=== PATIENT | male | born 1945 ===

== ENCOUNTER 2017-04-06 09:08 | Emergency (ER) | payer OTHER ==
[~2017-04-06] VITALS: Ht 175.3 cm; Wt 90.7 kg
[~2017-04-06 09:08] MED LIST: FAMO20 PO; IBUPROFEN; LISINOPRIL PO; METH5 PO; VALIUM
[2017-04-06] MEDS ORDERED: IBUP800 PO (09:26)
[2017-04-06] MEDS ORDERED: TRIA50 (09:26)
[2017-04-06 09:49] LABS: BASOPHILS ABSOLUTE AUTO 0.04 K/mm3 (0.00-0.23); BASOPHILS PERCENT AUTO 1 % (0-2); EOSINOPHILS ABSOLUTE AUTO 0.06 K/mm3 (0.00-0.68); EOSINOPHILS PERCENT AUTO 1 % (0-6); Hematocrit 44.2 % (37.0-53.0); Hemoglobin 14.8 g/dL (13.5-17.5); IMMATURE GRAN ABSOLUTE AUTO 0.02 K/mm3 (0.00-0.10); IMMATURE GRAN PERCENT AUTO 0 % (0-1); LYMPHOCYTES ABSOLUTE AUTO 1.22 K/mm3 (0.84-5.20); LYMPHOCYTES PERCENT AUTO 18 % (21-46); MONOCYTES ABSOLUTE AUTO 0.79 K/mm3 (0.16-1.47); MONOCYTES PERCENT AUTO 12 % (4-13); Mean Corpuscular HGB Conc 33.5 g/dL (31.5-36.5); Mean Corpuscular Volume 90 fL (80-100); Mean Platelet Volume 9.6 fL (9.1-12.4); NEUTROPHILS PERCENT AUTO 69 % (41-73); Platelet Count 251 K/mm3 (150-400); RDW Coefficient Variation 12.1 % (11.7-14.2); RDW Standard Deviation 39.8 fL (35.1-46.3); Red Blood Cell Count 4.94 M/mm3 (4.30-5.90); White Blood Cell Count 6.83 K/mm3 (4.00-11.30)
[2017-04-06 10:13] LABS: Alanine Aminotransfer (ALT/SGP 41 U/L (12-78); Albumin, Blood 3.9 g/dL (3.4-5.0); Albumin/Globulin Ratio 0.9 (0.8-1.8); Alk Phos 77 U/L (50-136); Anion Gap 6 mmol/L (6-16); Aspartate Aminotrans (AST/SGOT 32 U/L (12-37); Bilirubin, Total 0.3 mg/dL (0.1-1.0); Blood Urea Nitrogen 19 mg/dL (8-24); Bun/Creatinine Ratio 21.1 (12.0-20.0); CO2, Blood 25 mmol/L (21-32); Calcium, Blood 8.4 mg/dL (8.5-10.1); Chloride, Blood 103 mmol/L (98-108); Globulin, Blood 4.4 g/dL (2.2-4.0); Glomerular Filtration Rate >60 (60-); Glucose, Blood 96 mg/dL (70-99); Potassium, Blood 4.2 mmol/L (3.5-5.5); Sodium, Blood 134 mmol/L (136-145); Total Protein, Blood 8.3 g/dL (6.4-8.2); Troponin I <0.015 ng/mL (0.000-0.040)
[2017-04-06] MEDS ORDERED: Zofran8 MG PO (11:12)
[2017-04-06] MEDS ORDERED: MECL12.5 PO (11:12)
[2017-04-06 11:17] LABS: Influenza A Negative (NEGATIVE); Influenza B Negative (NEGATIVE)
== END 2017-04-06 11:40 | disposition home or self-care (01) ==
LOC: ER 09:08
PROVIDERS: Emergency Medicine
DX: R42 Dizziness and giddiness (principal); Z79.899 Other long term (current) drug therapy; I10 Essential (primary) hypertension; K21.9 Gastro-esophageal reflux disease without esophagitis; Z87.891 Personal history of nicotine dependence
CPT/HCPCS: 36415; 71046; 80053; 84443; 84484; 85025; 87804; 93005; 93010; 93880; 96361; 96374; 96375; 99284; J2060; J2405; J7030

== ENCOUNTER → 2018-12-09 | Outpatient (CLI) | payer OTHER ==
[~2018-12-09] MED LIST changes: +IBUP800 PO; +MECL12.5 PO; +TRIA50; +Zofran8 MG PO
[2018-12-09 10:57] LABS: U Amphetamine Screen Not Detected; U Barbituate Screen Not Detected; U Benzodiazapine Screen Not Detected; U Buprenorphine Screen Not Detected; U Cannabinoids Screen Not Detected; U Cocaine Screen Not Detected; U Methadone Screen DETECTED; U Methamphetamine Screen Not Detected; U Opiates Screen Not Detected; U Oxycodone Screen Not Detected; U Phencyclidine Screen Not Detected; U Propoxyphene Screen Not Detected
== END | disposition home or self-care (01) ==
LOC: LAB SHORT 08:13 → OLS 08:13
PROVIDERS: Internal Medicine
DX: Z51.81 Encounter for therapeutic drug level monitoring (principal); Z79.891 Long term (current) use of opiate analgesic
CPT/HCPCS: G0480

== ENCOUNTER 2019-01-01 10:26 | Emergency (ER) | payer OTHER ==
[~2019-01-01] VITALS: Ht 175.3 cm; Wt 98.9 kg
[2019-01-01] MEDS ORDERED: Norco 5-325 Ta1 EACH PO (11:24)
[2019-01-01] MEDS ORDERED: METPRE4DP PO (11:24)
== END 2019-01-01 11:55 | disposition home or self-care (01) ==
LOC: ER 10:26
DX: M54.5 Low back pain (principal); I10 Essential (primary) hypertension; K21.9 Gastro-esophageal reflux disease without esophagitis; Z87.891 Personal history of nicotine dependence; Z79.899 Other long term (current) drug therapy
CPT/HCPCS: 72100; 99283-25; A9270-GY

== ENCOUNTER 2019-01-15 08:39 | Emergency (ER) | payer OTHER ==
[~2019-01-15] VITALS: Ht 175.3 cm; Wt 99.8 kg
[~2019-01-15 08:39] MED LIST changes: +METPRE4DP PO; +Norco 5-325 Ta1 EACH PO
[2019-01-15 09:24] LABS: BASOPHILS ABSOLUTE AUTO 0.06 K/mm3 (0.00-0.23); BASOPHILS PERCENT AUTO 1 % (0-2); EOSINOPHILS ABSOLUTE AUTO 0.15 K/mm3 (0.00-0.68); EOSINOPHILS PERCENT AUTO 2 % (0-6); Hematocrit 39.1 % (37.0-53.0); Hemoglobin 12.7 g/dL (13.5-17.5); IMMATURE GRAN ABSOLUTE AUTO 0.07 K/mm3 (0.00-0.10); IMMATURE GRAN PERCENT AUTO 1 % (0-1); LYMPHOCYTES ABSOLUTE AUTO 1.77 K/mm3 (0.84-5.20); LYMPHOCYTES PERCENT AUTO 19 % (21-46); MONOCYTES ABSOLUTE AUTO 0.97 K/mm3 (0.16-1.47); MONOCYTES PERCENT AUTO 11 % (4-13); Mean Corpuscular HGB 30.5 pg (26.0-34.0); Mean Corpuscular HGB Conc 32.5 g/dL (31.5-36.5); Mean Corpuscular Volume 94 fL (80-100); Mean Platelet Volume 9.5 fL (9.1-12.4); NEUTROPHILS ABSOLUTE AUTO 6.24 K/mm3 (1.96-9.15); NEUTROPHILS PERCENT AUTO 67 % (41-73); Platelet Count 245 K/mm3 (150-400); RDW Coefficient Variation 12.7 % (11.7-14.2); RDW Standard Deviation 43.8 fL (35.1-46.3); Red Blood Cell Count 4.16 M/mm3 (4.30-5.90); White Blood Cell Count 9.26 K/mm3 (4.00-11.30)
[2019-01-15 09:31] LABS: Influenza A Negative (NEGATIVE); Influenza B Negative (NEGATIVE)
[2019-01-15 09:47] LABS: Alanine Aminotransfer (ALT/SGP 45 U/L (12-78); Albumin, Blood 3.4 g/dL (3.4-5.0); Albumin/Globulin Ratio 0.8 (0.8-1.8); Alk Phos 77 U/L (50-136); Anion Gap 6 mmol/L (6-16); Aspartate Aminotrans (AST/SGOT 31 U/L (12-37); Bilirubin, Total 0.2 mg/dL (0.1-1.0); Blood Urea Nitrogen 17 mg/dL (8-24); Bun/Creatinine Ratio 17.7 (12.0-20.0); CO2, Blood 26 mmol/L (21-32); Calcium, Blood 8.7 mg/dL (8.5-10.1); Chloride, Blood 107 mmol/L (98-108); Creatinine, Blood 0.96 mg/dL (0.60-1.20); Globulin, Blood 4.1 g/dL (2.2-4.0); Glomerular Filtration Rate >60 (60-); Glucose, Blood 92 mg/dL (70-99); Potassium, Blood 4.1 mmol/L (3.5-5.5); Sodium, Blood 139 mmol/L (136-145); Total Protein, Blood 7.5 g/dL (6.4-8.2); Troponin I <0.015 ng/mL (0.000-0.040)
[2019-01-15] MEDS ORDERED: Zithromax250 MG PO (10:28)
[2019-01-15] MEDS ORDERED: IBUP600 PO (10:28)
[2019-01-15] MEDS ORDERED: DEXT30SU PO (10:28)
== END 2019-01-15 12:05 | disposition home or self-care (01) ==
LOC: ER 08:39
PROVIDERS: Emergency Medicine
DX: J40 Bronchitis, not specified as acute or chronic (principal); I10 Essential (primary) hypertension; K21.9 Gastro-esophageal reflux disease without esophagitis; Z87.891 Personal history of nicotine dependence; Z79.899 Other long term (current) drug therapy; Z79.52 Long term (current) use of systemic steroids
CPT/HCPCS: 36415; 71046; 80053; 84484; 85025; 87804; 93005; 93010; 96374; 99284-25; J1885

== ENCOUNTER 2020-11-28 08:16 | Day surgery (SDC) | payer OTHER ==
[~2020-11-28] VITALS: Ht 175.3 cm; Wt 100.0 kg
[~2020-11-28 08:16] MED LIST changes: +Aspir 8181 MG; +DEXT30SU PO; +DYAZIDE 37.5-21 EACH; +IBUP600 PO; +IBUP800; +MIRT30; +MONT10T; +OMEP20ER; +PROCARDIA XL90 MG; +Zithromax250 MG PO
== END 2020-11-28 10:12 | disposition home or self-care (01) ==
LOC: ORSCSDS 08:16
PROVIDERS: Internal Medicine Gastroenterology
PROC: 0DBH8ZX Excision of Cecum, Via Natural or Artificial Opening Endoscopic, Diagnostic (ICD-10-PCS; principal; 2020-11-28 09:30)
PROC: 0DBL8ZX Excision of Transverse Colon, Via Natural or Artificial Opening Endoscopic, Diagnostic (ICD-10-PCS; principal; 2020-11-28 09:30)
DX: Z12.11 Encounter for screening for malignant neoplasm of colon (principal); D12.0 Benign neoplasm of cecum; D12.3 Benign neoplasm of transverse colon; I10 Essential (primary) hypertension; K21.9 Gastro-esophageal reflux disease without esophagitis; E78.5 Hyperlipidemia, unspecified; Z79.899 Other long term (current) drug therapy; Z79.82 Long term (current) use of aspirin
CPT/HCPCS: 88305; J2704; J7120

== ENCOUNTER 2021-10-13 14:10 | Inpatient (IN) | payer OTHER ==
[~2021-10-13] VITALS: Ht 175.3 cm; Wt 103.6 kg
[~2021-10-13 14:10] MED LIST changes: -DYAZIDE 37.5-21 EACH; +DYAZIDE 37.5-21 EACH PO; -IBUP800; -LISINOPRIL PO; -MONT10T; +MONT10T PO; -OMEP20ER; +OMEP20ER PO; +Zestril30 MG PO
[2021-10-13 15:26] LABS: Source, Urine Clean Catch
[2021-10-13 15:28] LABS: BASOPHILS ABSOLUTE AUTO 0.07 K/mm3 (0.00-0.23); BASOPHILS PERCENT AUTO 0 % (0-2); EOSINOPHILS PERCENT AUTO 0 % (0-6); Hematocrit 45.6 % (37.0-53.0); Hemoglobin 15.3 g/dL (13.5-17.5); IMMATURE GRAN ABSOLUTE AUTO 0.21 K/mm3 (0.00-0.10); IMMATURE GRAN PERCENT AUTO 1 % (0-1); LYMPHOCYTES ABSOLUTE AUTO 1.37 K/mm3 (0.84-5.20); LYMPHOCYTES PERCENT AUTO 6 % (21-46); MONOCYTES ABSOLUTE AUTO 1.55 K/mm3 (0.16-1.47); MONOCYTES PERCENT AUTO 7 % (4-13); Mean Corpuscular HGB Conc 33.6 g/dL (31.5-36.5); Mean Corpuscular Volume 92 fL (80-100); Mean Platelet Volume 9.5 fL (9.1-12.4); NEUTROPHILS ABSOLUTE AUTO 20.25 K/mm3 (1.96-9.15); NEUTROPHILS PERCENT AUTO 86 % (41-73); Platelet Count 245 K/mm3 (150-400); RDW Coefficient Variation 12.4 % (11.7-14.2); RDW Standard Deviation 42.5 fL (35.1-46.3); Red Blood Cell Count 4.94 M/mm3 (4.30-5.90); White Blood Cell Count 23.45 K/mm3 (4.00-11.30)
[2021-10-13 15:32] LABS: Appearance, Urine Clear (Clear); Bilirubin, Urine Neg (Neg); Blood, Urine 2+ (Neg); Glucose Qualitative, Urine Neg (Neg); Ketones, Urine Neg (Neg); Leukocyte Esterase, Urine 3+ (Neg); Nitrite, Urine Neg (Neg); Protein, Urine 1+ (Neg); Urobilinogen, Urine NORM (Normal)
[2021-10-13 15:40] LABS: Color, Urine Pale Yellow (P-Yellow)
[2021-10-13 15:41] LABS: Bacteria Mod /hpf; Squamous Epithelial Cells Rare /hpf (Few); White Blood Cells, Urine 25-50 /hpf (0-5)
[2021-10-13 15:54] LABS: Albumin, Blood 4.2 g/dL (3.4-5.0); Albumin/Globulin Ratio 0.9 (0.8-1.8); Bilirubin, Total 0.9 mg/dL (0.1-1.0); Calcium, Blood 9.6 mg/dL (8.5-10.1); Creatinine, Blood 1.1 mg/dL (0.60-1.20); Globulin, Blood 4.7 g/dL (2.2-4.0); Potassium, Blood 4.8 mmol/L (3.5-5.5); Total Protein, Blood 8.9 g/dL (6.4-8.2)
--- NOTE | 2021-10-14 02:02 | NUR ---
PATIENT IS NEW ADMIT FROM THE ED. AXOX 4 AND SBA FROM RNEY TO BED. REPORTS HAVING INCREASE WEAKNESS. REPORTS PAINFUL URINATION WITH 750 mL OUT AT BEDSIDE. DENIES CHEST PAIN, SOB, AND N/V. ON ROOM AIR. TELEMETRY PLACED AND TECH REPORTS ST 103. ORIENTED TO ROOM AND CALL LIGHT SYSTEM. REPORTS WANTS TO SLEEP AFTER ASSESSMENT. CALL LIGHT IN REACH.
--- NOTE | 2021-10-14 04:45 | NUR ---
SHIFT SUMMARY PATIENT REPORTS PAIN WITH URINATION. AXOX 4 AND SBA TO BR. USES URINAL AT BEDSIDE. PIV REMAINS INTACT. LR INFUSING AT 125mL/HR. RAILROAD POLICE OFFICER ST 103. ON ROOM AIR. VSS/AFEBRILE. DENIES CHEST PAIN, SOB, AND N/V. ABLE TO REST SINCE ADMIT. CALL LIGHT IN REACH. BED IN LOWEST POSITION. WILL CONTINUE TO MONITOR UNTIL DAY SHIFT NURSE ASSUMES CARE.
[2021-10-14 04:56] LABS: Bun/Creatinine Ratio 18.9 (12.0-20.0); Calcium, Blood 7.9 mg/dL (8.5-10.1); Creatinine, Blood 1.11 mg/dL (0.60-1.20); Magnesium, Blood 1.8 mg/dL (1.6-2.4); Potassium, Blood 4.3 mmol/L (3.5-5.5)
[2021-10-14 06:12] LABS: BASOPHILS ABSOLUTE AUTO 0.09 K/mm3 (0.00-0.23); BASOPHILS PERCENT AUTO 0 % (0-2); EOSINOPHILS ABSOLUTE AUTO 0.02 K/mm3 (0.00-0.68); EOSINOPHILS PERCENT AUTO 0 % (0-6); Hematocrit 36.6 % (37.0-53.0); Hemoglobin 12.1 g/dL (13.5-17.5); IMMATURE GRAN ABSOLUTE AUTO 0.36 K/mm3 (0.00-0.10); IMMATURE GRAN PERCENT AUTO 2 % (0-1); LYMPHOCYTES ABSOLUTE AUTO 1.51 K/mm3 (0.84-5.20); LYMPHOCYTES PERCENT AUTO 7 % (21-46); MONOCYTES ABSOLUTE AUTO 1.61 K/mm3 (0.16-1.47); MONOCYTES PERCENT AUTO 8 % (4-13); Mean Corpuscular HGB 30.7 pg (26.0-34.0); Mean Corpuscular HGB Conc 33.1 g/dL (31.5-36.5); Mean Corpuscular Volume 93 fL (80-100); Mean Platelet Volume 9.9 fL (9.1-12.4); NEUTROPHILS ABSOLUTE AUTO 16.92 K/mm3 (1.96-9.15); NEUTROPHILS PERCENT AUTO 83 % (41-73); Platelet Count 215 K/mm3 (150-400); RDW Coefficient Variation 12.7 % (11.7-14.2); RDW Standard Deviation 43.4 fL (35.1-46.3); Red Blood Cell Count 3.94 M/mm3 (4.30-5.90); White Blood Cell Count 20.51 K/mm3 (4.00-11.30)
--- NOTE | 2021-10-14 18:38 | NUR ---
SHIFT SUMMARY PATIENT ALERT AND ORIENTED WHEN AWAKE. SLEPT MOST OF AFTERNOON. SBA WITH FWW TO BATHROOM. ROUTINE IV FLUIDS AND VANCO. REPORTS FEELING CONSTIPATED, BOWEL CARE STARTED THIS SHIFT. TOLERATING REGULALR DIET AND LIQUIDS. VOIDING WELL ALTHOUGH PAINFUL WITH URINATION. WILL REPORT TO HOLDER PILE DRIVING RN.
--- NOTE | 2021-10-15 04:53 | NUR ---
SHIFT SUMMARY A/OX4, SBA WITH FWW TO BATHROOM. DENIES PAIN OR SOB. SLEPT T/O THE NIGHT. VSS, NO ACUTE CHANGES AT THIS TIME. BED IN LOWEST POSITION WITH CALL LIGHT IN REACH. WILL CONTINUE TO MONITOR AND REPORT TO ONCOMING RN.
[2021-10-15 05:32] LABS: BASOPHILS ABSOLUTE AUTO 0.06 K/mm3 (0.00-0.23); BASOPHILS PERCENT AUTO 0 % (0-2); EOSINOPHILS ABSOLUTE AUTO 0.04 K/mm3 (0.00-0.68); EOSINOPHILS PERCENT AUTO 0 % (0-6); Hematocrit 35.8 % (37.0-53.0); Hemoglobin 11.7 g/dL (13.5-17.5); IMMATURE GRAN ABSOLUTE AUTO 0.15 K/mm3 (0.00-0.10); IMMATURE GRAN PERCENT AUTO 1 % (0-1); LYMPHOCYTES ABSOLUTE AUTO 1.53 K/mm3 (0.84-5.20); LYMPHOCYTES PERCENT AUTO 9 % (21-46); MONOCYTES ABSOLUTE AUTO 1.44 K/mm3 (0.16-1.47); MONOCYTES PERCENT AUTO 9 % (4-13); Mean Corpuscular HGB 30.6 pg (26.0-34.0); Mean Corpuscular HGB Conc 32.7 g/dL (31.5-36.5); Mean Corpuscular Volume 94 fL (80-100); Mean Platelet Volume 10.5 fL (9.1-12.4); NEUTROPHILS ABSOLUTE AUTO 13.73 K/mm3 (1.96-9.15); NEUTROPHILS PERCENT AUTO 81 % (41-73); Platelet Count 209 K/mm3 (150-400); RDW Coefficient Variation 12.8 % (11.7-14.2); RDW Standard Deviation 43.6 fL (35.1-46.3); Red Blood Cell Count 3.82 M/mm3 (4.30-5.90); White Blood Cell Count 16.95 K/mm3 (4.00-11.30)
[2021-10-15 06:00] LABS: Bun/Creatinine Ratio 13.6 (12.0-20.0); Calcium, Blood 8.8 mg/dL (8.5-10.1); Creatinine, Blood 0.95 mg/dL (0.60-1.20)
--- NOTE | 2021-10-15 16:39 | NUR ---
SHIFT SUMMARY PATINT ALERT AND ORIENTED AND INDEPENDENT IN ROOM. URINE POSITIVE FOR MRSA, PLACED IN CONTACT ISO. MEDICATED FOR PAIN PRN, REPORTS PAINFUL URINATION. TOLERATING DIET AND LIQUIDS. ROUTINE IV VANCO. SEVERAL BOWEL MOVMEMENTS THIS SHIFT.
[2021-10-16 01:59] LABS: Hematocrit 34.7 % (37.0-53.0); Hemoglobin 11.5 g/dL (13.5-17.5); Mean Corpuscular HGB 30.6 pg (26.0-34.0); Mean Corpuscular HGB Conc 33.1 g/dL (31.5-36.5); Mean Corpuscular Volume 92 fL (80-100); Mean Platelet Volume 9.7 fL (9.1-12.4); Platelet Count 207 K/mm3 (150-400); RDW Coefficient Variation 12.4 % (11.7-14.2); RDW Standard Deviation 42.1 fL (35.1-46.3); Red Blood Cell Count 3.76 M/mm3 (4.30-5.90); White Blood Cell Count 13.78 K/mm3 (4.00-11.30)
[2021-10-16 02:17] LABS: Vancomycin, Trough 11.6 ug/mL (5.0-10.0)
[2021-10-16 02:18] LABS: Albumin, Blood 2.7 g/dL (3.4-5.0); Albumin/Globulin Ratio 0.7 (0.8-1.8); Bilirubin, Total 0.4 mg/dL (0.1-1.0); Bun/Creatinine Ratio 15.5 (12.0-20.0); Calcium, Blood 8.6 mg/dL (8.5-10.1); Creatinine, Blood 1.03 mg/dL (0.60-1.20); Total Protein, Blood 6.7 g/dL (6.4-8.2)
--- NOTE | 2021-10-16 06:01 | NUR ---
SHIFT SUMMARY A/OX4, IND WITH FWW TO BATHROOM. C/O URINARY PAIN AND URGENCY, ORDER FOR PYRIDIUM PLACED. VSS, NO ACUTE CHANGES AT THIS TIME. BED IN LOWEST POSITION WITH CALL LIGHT IN REACH. WILL CONTINUE TO MONITOR AND REPORT TO ONCOMING RN.
--- NOTE | 2021-10-16 18:14 | NUR ---
SHIFT SUMMARY PT A&OX4 AND IN PLEASENT MOOD T/O SHIFT. PT C/O PAIN IN BLADDER/LOWER BACK-MEDICATED PER EMAR. PT VOICES FAMILY IS CONCERNED ABOUT PT CONDITION, HOPES FOR A UPDATE BY DOCTOR TOMORROW AM-ASKS ABOUT LABS, IF ABX ARE WORKING, IF INFECTION IS IMPROVING. CALL LIGHT W/IN REACH. SBA TO BATHROOM T/O SHIFT. VSS. PLAN TO CONTINUE IV ABX @ THIS TIME.
--- NOTE | 2021-10-17 04:45 | NUR ---
SHIFT SUMMARY NO ACUTE EVENTS T/O SHIFT. PT C/O OF BLADDER PAIN WHEN AMBULATING AND USING THE BATHROOM, HE WAS GIVEN PRN MEDICATION PER EMAR AND SLEPT WELL THROUGH THE NIGHT. AT 0450 HE AWOKE C/O OF 8/10 BACK PAIN AND WAS GIVEN PRN MEDICATION PER EMAR. PT IS ON CONTINOUS LR @125 AND RECIEVED ABX.
--- NOTE | 2021-10-17 16:12 | NUR ---
SHIFT SUMMARY PATIENT MEDICATED X1 WITH PYRIDIUM FOR PAINFUL URINATION AND X1 WITH TORODOL FOR BACK/FLANK PAIN. DENIES NAUSEA AND SHORTNESS OF BREATH. UP INDEPENDENT IN ROOM. GOOD APPETITE. VISITOR IN AFTERNOON. PLEASANT AND COOPERATIVE WITH CARE.
[2021-10-18 02:39] LABS: Hematocrit 30.8 % (37.0-53.0); Hemoglobin 10.4 g/dL (13.5-17.5); Mean Corpuscular HGB 31.2 pg (26.0-34.0); Mean Corpuscular HGB Conc 33.8 g/dL (31.5-36.5); Mean Corpuscular Volume 93 fL (80-100); Mean Platelet Volume 9.3 fL (9.1-12.4); Platelet Count 224 K/mm3 (150-400); RDW Coefficient Variation 12.6 % (11.7-14.2); RDW Standard Deviation 42.6 fL (35.1-46.3); Red Blood Cell Count 3.33 M/mm3 (4.30-5.90); White Blood Cell Count 13.24 K/mm3 (4.00-11.30)
[2021-10-18 02:56] LABS: Vancomycin, Trough 11.7 ug/mL (5.0-10.0)
[2021-10-18 02:58] LABS: Albumin, Blood 2.3 g/dL (3.4-5.0); Albumin/Globulin Ratio 0.6 (0.8-1.8); Bilirubin, Total 0.5 mg/dL (0.1-1.0); Bun/Creatinine Ratio 18.4 (12.0-20.0); Calcium, Blood 8.1 mg/dL (8.5-10.1); Creatinine, Blood 1.14 mg/dL (0.60-1.20); Globulin, Blood 4.1 g/dL (2.2-4.0); Potassium, Blood 3.8 mmol/L (3.5-5.5); Total Protein, Blood 6.4 g/dL (6.4-8.2)
--- NOTE | 2021-10-18 05:00 | NUR ---
SHIFT SUMMARY PT MEDICATED X2 WITH SCHEDULED IV TORADOL FOR PAIN. TODAY IS THE 5TH DAY HE HAS RECIEVED TORADOL. PT CONTINUES TO RECIEVE IV VANCOMYCIN. PT SLEPT WELL T/O THE NIGHT, IS INDEPENDANT IN THE ROOM WITH A FWW, AOX4, PLEASANT AND COOPERATIVE WITH CARE.
--- NOTE | 2021-10-18 18:40 | NUR ---
SHIFT SUMMARY: NO ACUTE EVENTS. C/O 09/01 PAIN IN LOWER ABDOMEN, RADIATING AROUND TO HIS L FLANK AND LOW BACK; MEDICATED PER EMAR, PLACED K PAD. WHEN DR. FORRESTER ROUNDED, SHE ORDERED REPEAT CT A/P. THIS EVENING, PATIENT PASSED SMALL AMOUNT OF BLOOD WITH URINE, STATED HE COULD "FEEL SOMETHING" TRYING TO PASS AND FELT BETTER AFTER BLOOD WAS PASSED; DR. FORRESTER MADE AWARE. APPETITE OK, NO NAUSEA, HAD BM TODAY. AMBULATING IN ROOM WITH FWW.
--- NOTE | 2021-10-18 22:58 | NUR ---
1954 PT LYING IN BED, REPORTS PAIN ACROSS ABD AND LOWER BACK, GAVE PAIN MEDS, WILL EVAL FOR EFFECT. PT REPORTS PASSING A BLOOD CLOT EARLIER IN HIS URINE. PT'S URINE IS A SLIGHTLY DARKER TEA COLOR. UNABLE TO SEE VISUALLY IF HE HAS BLOOD IN HIS URINE. NO OTHER APPARENT SIGNS OF DISTRESS. CALL LIGHT IS IN REACH.
--- NOTE | 2021-10-18 23:49 | NUR ---
PT LYING IN BED, EYES CLOSED, APPEARS TO BE RESTING. BREATHING IS EVEN, UNLABORED. NO APPARENT SIGNS OF DISTRESS. CALL LIGHT IS IN REACH.
--- NOTE | 2021-10-19 02:16 | NUR ---
PT LYING IN BED, EYES CLOSED, APPEARS TO BE RESTING. BREATHING IS EVEN, UNLABORED. NO APPARENT SIGNS OF DISTRESS. CALL LIGHT IS IN REACH.
--- NOTE | 2021-10-19 04:13 | NUR ---
PT REPORTS NAUSEA AND FEELS SWEATY. TURNED DOWN HEAT IN ROOM. PT WANTED TO TRY CRACKERS BEFORE TAKING NAUSEA MEDS. WILL EVAL FOR EFFECT. NO OTHE APPARENT SIGNS OF DISTRESS. CALL LIGHT IS IN REACH. LAB IS IN ROOM AT THIS TIME.
--- NOTE | 2021-10-19 04:14 | NUR ---
PT IS AAO X 4, ON RA. PT REPORTS PAIN ACROSS ABD AND LOWER BACK. GOT NORCO X 2. PT IS AT THIS TIME REPORTING NAUSEA BUT WANTS TO TRY CRACKERS BEFORE HE TAKE NAUSEA MEDS. PT REPORTED PASSING A SMALL BLOOD CLOT WITH HIS URINE ON DAY SHIFT. HE REPORTS BLEEDING WITH URINATION, HIS BLOOD IS SLIGHTLY DARK TEA COLORED, UNABLE TO VISUALLY SEE IF IT HAS BLOOD IN IT. PT DID REPORT THIS MORNING THAT THE BLEEDING IS LESS AND THE PAIN WITH URINATION IS LESS.
[2021-10-19 04:27] LABS: Hematocrit 31.1 % (37.0-53.0); Hemoglobin 10.3 g/dL (13.5-17.5); Mean Corpuscular HGB 30.7 pg (26.0-34.0); Mean Corpuscular HGB Conc 33.1 g/dL (31.5-36.5); Mean Corpuscular Volume 93 fL (80-100); Mean Platelet Volume 9.4 fL (9.1-12.4); Platelet Count 274 K/mm3 (150-400); RDW Coefficient Variation 12.7 % (11.7-14.2); RDW Standard Deviation 43.2 fL (35.1-46.3); Red Blood Cell Count 3.35 M/mm3 (4.30-5.90); White Blood Cell Count 12.94 K/mm3 (4.00-11.30)
[2021-10-19 04:51] LABS: Alanine Aminotransfer (ALT/SGP 111 U/L (12-78); Albumin, Blood 2.3 g/dL (3.4-5.0); Albumin/Globulin Ratio 0.6 (0.8-1.8); Alk Phos 125 U/L (50-136); Anion Gap 6 mmol/L (6-16); Aspartate Aminotrans (AST/SGOT 57 U/L (12-37); Bilirubin, Total 0.9 mg/dL (0.1-1.0); Blood Urea Nitrogen 19 mg/dL (8-24); Bun/Creatinine Ratio 19.6 (12.0-20.0); CO2, Blood 25 mmol/L (21-32); Calcium, Blood 7.9 mg/dL (8.5-10.1); Chloride, Blood 105 mmol/L (98-108); Creatinine, Blood 0.97 mg/dL (0.60-1.20); Globulin, Blood 4.1 g/dL (2.2-4.0); Glomerular Filtration Rate 81 (60-); Glucose, Blood 144 mg/dL (70-99); Potassium, Blood 3.8 mmol/L (3.5-5.5); Sodium, Blood 136 mmol/L (136-145); Total Protein, Blood 6.4 g/dL (6.4-8.2)
--- NOTE | 2021-10-19 05:18 | NUR ---
PT LYING IN BED, AWAKE, WAS REPORTING NAUSEA AND SWEATING. BOTH ARE RESOLVED NOW. BLADDER SCAN WAS DONE, NOT POST VOID, IT WAS 114. PT DENIES NEED FOR ANYTHING AT THIS TIME. NO APPARENT SIGNS OF DISTRESS. CALL LIGHT IS IN REACH. NO OTHER CHANGES THIS SHIFT.
--- NOTE | 2021-10-19 18:26 | NUR ---
SHIFT SUMMARY: NO ACUTE EVENTS. DENIED PAIN. GETTING UP INDEPENDENTLY, USING FWW FOR STABILITY. STILL HAVING SMALL AMT BLOOD IN URINE PER HIS REPORT, NOT OBSERVED BY THIS AUTHOR. FEELS CONSTIPATED, IS PASSING GAS; GAVE BOWEL MEDS AND RECEIVED ORDER FOR SUPPOSITORY AT HS. GOOD APPETITE AND PO FLUID INTAKE.
--- NOTE | 2021-10-19 22:41 | NUR ---
1951 PT LYING IN BED, REPORTS LOWER BACK PAIN, GAVE TYLENOL. REQUESTED AND RECIEVED A STOOL SOFTENER SUPPOSITORY. WILL EVAL FOR EFFECT. NO OTHER APPARENT SIGNS OF DISTRESS. CALL LIGHT IS IN REACH.
--- NOTE | 2021-10-19 22:48 | NUR ---
PT LYING IN BED, EYES CLOSED, APPEARS TO BE RESTING. BREATHING IS EVEN, UNLABORED, SOFTLY SNORING. NO APPARENT SIGNS OF DISTRESS. CALL LIGHT IS IN REACH.
--- NOTE | 2021-10-19 23:41 | NUR ---
PT SITTING ON EDGE OF BED. DENIES PAIN AT THIS TIME. NO LUCK WITH HAVING A BM YET. DENIES NEED FOR ANYTHING AT THIS TIME. NO APPARENT SIGNS OF DISTRESS. CALL LIGHT IS IN REACH.
--- NOTE | 2021-10-20 01:41 | NUR ---
PT LYING IN BED, EYES CLOSED, APPEARS TO BE RESTING. BREATHING IS EVEN, UNLABORED. NO APPARENT SIGNS OF DISTRESS. CALL LIGHT IS IN REACH.
[2021-10-20 02:23] LABS: Vancomycin, Trough 12.3 ug/mL (5.0-10.0)
[2021-10-20] MEDS ORDERED: DORZOLAMIDE-TIM10 ML BOTHEYES (03:18)
[2021-10-20] MEDS ORDERED: FLUT.05NI (03:20)
[2021-10-20] MEDS ORDERED: ADALAT CC PO (03:24)
[2021-10-20] MEDS ORDERED: METHADONE HCL10 M9 PO (03:25)
--- NOTE | 2021-10-20 04:53 | NUR ---
PT LYING IN BED, EYES CLOSED, APPEARS TO BE RESTING. WAKES EASILY TO VERBAL STIMULI. NO APPARENT SIGNS OF DISTRESS. CALL LIGHT IS IN REACH. DENIES NEED FOR ANYTHING AT THIS TIME.
--- NOTE | 2021-10-20 04:53 | NUR ---
PT IS AAO X 4, ON RA. REPORTED BACK PAIN, GOT TYLENOL AT HS.
--- NOTE | 2021-10-20 05:43 | NUR ---
PT LYING IN BED, EYES CLOSED, APPEARS TO BE RESTING. BREATHING IS EVEN, UNLABORED. NO APPARENT SIGNS OF DISTRESS. CALL LIGHT IS IN REACH. NO OTHER CHANGES THIS SHIFT.
[2021-10-20 08:42] LABS: Hematocrit 32.9 % (37.0-53.0); Hemoglobin 10.6 g/dL (13.5-17.5); Mean Corpuscular HGB 30.2 pg (26.0-34.0); Mean Corpuscular HGB Conc 32.2 g/dL (31.5-36.5); Mean Corpuscular Volume 94 fL (80-100); Mean Platelet Volume 9.3 fL (9.1-12.4); Platelet Count 336 K/mm3 (150-400); RDW Coefficient Variation 12.7 % (11.7-14.2); RDW Standard Deviation 43.5 fL (35.1-46.3); Red Blood Cell Count 3.51 M/mm3 (4.30-5.90); White Blood Cell Count 14.37 K/mm3 (4.00-11.30)
[2021-10-20 09:01] LABS: Albumin, Blood 2.3 g/dL (3.4-5.0); Albumin/Globulin Ratio 0.5 (0.8-1.8); Bilirubin, Total 0.4 mg/dL (0.1-1.0); Bun/Creatinine Ratio 16.5 (12.0-20.0); Calcium, Blood 8.3 mg/dL (8.5-10.1); Creatinine, Blood 0.79 mg/dL (0.60-1.20); Globulin, Blood 4.2 g/dL (2.2-4.0); Total Protein, Blood 6.5 g/dL (6.4-8.2)
--- NOTE | 2021-10-20 17:01 | NUR ---
SHIFT SUMMARY: NO ACUTE EVENTS. C/O ACHES IN LOW ABD AND BACK; TYLRNOL GIVEN WITH ADEQUATE RELIEF. HAD BM THIS MORNING. TOLERATING PO INTAKE. HAS NOT REPORTED ANY BLOOD IN URINE TODAY. STATED HE FEELS A BIT BETTER OVERALL. VANCOMYCIN CHANGED TO PO LEVAQUIN. IS HOPING TO GO HOME TOMORROW.
[2021-10-21 04:56] LABS: Hematocrit 30.7 % (37.0-53.0); Mean Corpuscular HGB 30.4 pg (26.0-34.0); Mean Corpuscular HGB Conc 32.6 g/dL (31.5-36.5); Mean Corpuscular Volume 93 fL (80-100); Mean Platelet Volume 9.2 fL (9.1-12.4); Platelet Count 350 K/mm3 (150-400); RDW Coefficient Variation 12.6 % (11.7-14.2); RDW Standard Deviation 43.4 fL (35.1-46.3); Red Blood Cell Count 3.29 M/mm3 (4.30-5.90); White Blood Cell Count 14.26 K/mm3 (4.00-11.30)
--- NOTE | 2021-10-21 05:32 | NUR ---
PT ADMITTED WITH SEPSIS D/T UTI. MORTON REMOVED PRIOR TO TODAY'S SHIFT. URINE OUTPUT MUCH IMPROVED WITH A TOTAL OF 3 UNMEASURED VOIDS. C/O MILD TO MODERATE PAIN FROM BACK; MEDICATED X1. NO ISSUES NOTED OVERNIGHT. ANTICIPATE D/C HOME.
[2021-10-21 05:43] LABS: Albumin, Blood 2.1 g/dL (3.4-5.0); Albumin/Globulin Ratio 0.5 (0.8-1.8); Bilirubin, Total 0.3 mg/dL (0.1-1.0); Bun/Creatinine Ratio 13.8 (12.0-20.0); Calcium, Blood 8.4 mg/dL (8.5-10.1); Creatinine, Blood 0.87 mg/dL (0.60-1.20); Potassium, Blood 4.2 mmol/L (3.5-5.5); Total Protein, Blood 6.1 g/dL (6.4-8.2)
[2021-10-21] MEDS ORDERED: LEVOFLOXACIN750 MG PO (10:09)
[2021-10-21] MEDS ORDERED: MIRALAX17 GM PO (10:10)
[2021-10-21] MEDS ORDERED: TAMS.4ER PO (10:10)
[2021-10-21] MEDS ORDERED: VISBIOME 112.51 EACH PO (10:12)
[2021-10-21] MEDS ORDERED: DOCU100 PO (10:12)
[2021-10-21] MEDS ORDERED: SULTRIDS PO (10:13)
--- NOTE | 2021-10-21 11:33 | NUR ---
Patient discharged home today. MD called urologist & PCP requesting that patient have follow-up appts love. Vitals stable, no c/o pain or discomfort. Reviewed discharge medications with patient, education on pyelonephritis, patient verbalizied understanding. Removed IV from LUE, cath tip intact, site WNL. Patient left unit at 11am.
== END 2021-10-21 11:27 | disposition home or self-care (01) | DRG 872 ==
LOC: ER 14:10 → PCU 22:14 → MEDS 10-14 01:09
PROVIDERS: Internal Medicine; Nurse Practitioner Acute Care; Pharmacist; Physician Assistant; ADMIT Internal Medicine
DX: A41.02 Sepsis due to Methicillin resistant Staphylococcus aureus (principal); N12 Tubulo-interstitial nephritis, not specified as acute or chronic; E87.2 Acidosis; E87.1 Hypo-osmolality and hyponatremia; Z68.41 Body mass index [BMI] 40.0-44.9, adult; R65.20 Severe sepsis without septic shock; E66.9 Obesity, unspecified; D64.9 Anemia, unspecified; I10 Essential (primary) hypertension; N41.9 Inflammatory disease of prostate, unspecified; K74.60 Unspecified cirrhosis of liver; K21.9 Gastro-esophageal reflux disease without esophagitis; N40.0 Benign prostatic hyperplasia without lower urinary tract symptoms; N30.90 Cystitis, unspecified without hematuria; M79.672 Pain in left foot; G89.29 Other chronic pain; M54.50 Low back pain, unspecified; Z66 Do not resuscitate; E86.1 Hypovolemia; K76.0 Fatty (change of) liver, not elsewhere classified; F41.9 Anxiety disorder, unspecified; M19.90 Unspecified osteoarthritis, unspecified site; K59.00 Constipation, unspecified; Z87.891 Personal history of nicotine dependence; Z79.82 Long term (current) use of aspirin; Z79.899 Other long term (current) drug therapy; Z79.811 Long term (current) use of aromatase inhibitors
CPT/HCPCS: 36415; 74177; 80048; 80053; 80202; 81001; 83605; 83735; 84153; 85025; 85027; 87040; 87077; 87086; 87147; 87186; 96361; 96365-59; 96366; 96375; 99285-25; A9270; J0696; J1650; J1885; J2543; J3010; J3370; J7030; J7050; J7120; Q9967

== ENCOUNTER → 2022-04-18 | Outpatient (CLI) | payer OTHER ==
[~2022-04-18] MED LIST changes: +ADALAT CC PO; +DOCU100 PO; +DORZOLAMIDE-TIM10 ML BOTHEYES; +FLUT.05NI; +LEVOFLOXACIN750 MG PO; +METHADONE HCL10 M9 PO; +MIRALAX17 GM PO; +SULTRIDS PO; +TAMS.4ER PO; +VISBIOME 112.51 EACH PO
[2022-04-18 12:56] LABS: BASOPHILS ABSOLUTE AUTO 0.06 K/mm3 (0.00-0.23); BASOPHILS PERCENT AUTO 1 % (0-2); EOSINOPHILS ABSOLUTE AUTO 0.04 K/mm3 (0.00-0.68); EOSINOPHILS PERCENT AUTO 1 % (0-6); Hematocrit 38.9 % (37.0-53.0); Hemoglobin 13.7 g/dL (13.5-17.5); IMMATURE GRAN ABSOLUTE AUTO 0.01 K/mm3 (0.00-0.10); IMMATURE GRAN PERCENT AUTO 0 % (0-1); LYMPHOCYTES ABSOLUTE AUTO 1.88 K/mm3 (0.84-5.20); LYMPHOCYTES PERCENT AUTO 25 % (21-46); MONOCYTES ABSOLUTE AUTO 0.57 K/mm3 (0.16-1.47); MONOCYTES PERCENT AUTO 7 % (4-13); Mean Corpuscular HGB 30.6 pg (26.0-34.0); Mean Corpuscular HGB Conc 35.2 g/dL (31.5-36.5); Mean Corpuscular Volume 87 fL (80-100); Mean Platelet Volume 11.2 fL (9.1-12.4); NEUTROPHILS ABSOLUTE AUTO 5.11 K/mm3 (1.96-9.15); NEUTROPHILS PERCENT AUTO 67 % (41-73); Platelet Count 273 K/mm3 (150-400); RDW Coefficient Variation 11.3 % (11.7-14.2); RDW Standard Deviation 35.9 fL (35.1-46.3); Red Blood Cell Count 4.48 M/mm3 (4.30-5.90); White Blood Cell Count 7.67 K/mm3 (4.00-11.30)
[2022-04-18 13:10] LABS: Albumin, Blood 4.2 g/dL (3.4-5.0); Bilirubin, Total 0.5 mg/dL (0.1-1.0); Bun/Creatinine Ratio 19.9 (12.0-20.0); Calcium, Blood 9.4 mg/dL (8.5-10.1); Creatinine, Blood 1.76 mg/dL (0.60-1.20); Globulin, Blood 4.3 g/dL (2.2-4.0); Potassium, Blood 5.4 mmol/L (3.5-5.5); Thyroid Stimulating Hormone 2.046 uIU/mL (0.360-4.800); Total Protein, Blood 8.5 g/dL (6.4-8.2)
[2022-04-18 17:34] LABS: Bun/Creatinine Ratio 21.2 (12.0-20.0); Calcium, Blood 8.7 mg/dL (8.5-10.1); Creatinine, Blood 1.32 mg/dL (0.60-1.20); Potassium, Blood 5.1 mmol/L (3.5-5.5)
== END | disposition home or self-care (01) ==
LOC: LAB SHORT 12:44
PROVIDERS: Physician Assistant
DX: R53.83 Other fatigue (principal); R73.9 Hyperglycemia, unspecified
CPT/HCPCS: 80048; 80053; 83036; 83690; 84443; 85025

== ENCOUNTER → 2022-04-19 | Outpatient (CLI) | payer OTHER ==
[2022-04-19 16:01] LABS: BASOPHILS ABSOLUTE AUTO 0.06 K/mm3 (0.00-0.23); BASOPHILS PERCENT AUTO 1 % (0-2); EOSINOPHILS ABSOLUTE AUTO 0.07 K/mm3 (0.00-0.68); EOSINOPHILS PERCENT AUTO 1 % (0-6); Hematocrit 36.8 % (37.0-53.0); Hemoglobin 12.9 g/dL (13.5-17.5); IMMATURE GRAN ABSOLUTE AUTO 0.02 K/mm3 (0.00-0.10); IMMATURE GRAN PERCENT AUTO 0 % (0-1); LYMPHOCYTES ABSOLUTE AUTO 2.09 K/mm3 (0.84-5.20); LYMPHOCYTES PERCENT AUTO 27 % (21-46); MONOCYTES ABSOLUTE AUTO 0.54 K/mm3 (0.16-1.47); MONOCYTES PERCENT AUTO 7 % (4-13); Mean Corpuscular HGB 31.3 pg (26.0-34.0); Mean Corpuscular HGB Conc 35.1 g/dL (31.5-36.5); Mean Corpuscular Volume 89 fL (80-100); Mean Platelet Volume 11.2 fL (9.1-12.4); NEUTROPHILS ABSOLUTE AUTO 4.87 K/mm3 (1.96-9.15); NEUTROPHILS PERCENT AUTO 64 % (41-73); Platelet Count 237 K/mm3 (150-400); RDW Coefficient Variation 11.7 % (11.7-14.2); RDW Standard Deviation 37.2 fL (35.1-46.3); Red Blood Cell Count 4.12 M/mm3 (4.30-5.90); White Blood Cell Count 7.65 K/mm3 (4.00-11.30)
[2022-04-19 16:12] LABS: Albumin, Blood 3.7 g/dL (3.4-5.0); Albumin/Globulin Ratio 0.9 (0.8-1.8); Bilirubin, Total 0.2 mg/dL (0.1-1.0); Bun/Creatinine Ratio 21.5 (12.0-20.0); Calcium, Blood 9.1 mg/dL (8.5-10.1); Creatinine, Blood 1.3 mg/dL (0.60-1.20); Globulin, Blood 3.9 g/dL (2.2-4.0); Potassium, Blood 4.6 mmol/L (3.5-5.5); Total Protein, Blood 7.6 g/dL (6.4-8.2)
== END | disposition home or self-care (01) ==
LOC: LAB SHORT 15:57
PROVIDERS: Physician Assistant
DX: E86.0 Dehydration (principal)
CPT/HCPCS: 80053; 85025

== ENCOUNTER 2022-10-13 16:54 | Emergency (ER) | payer OTHER ==
[~2022-10-13] VITALS: Ht 175.3 cm; Wt 99.8 kg
[2022-10-13 20:00] VITALS: BP 150/72
== END 2022-10-13 20:25 | disposition home or self-care (01) ==
LOC: ER 16:54
DX: K80.50 Calculus of bile duct without cholangitis or cholecystitis without obstruction (principal); Z87.891 Personal history of nicotine dependence; K21.9 Gastro-esophageal reflux disease without esophagitis; Z79.2 Long term (current) use of antibiotics; Z79.1 Long term (current) use of non-steroidal anti-inflammatories (NSAID); Z79.899 Other long term (current) drug therapy; I10 Essential (primary) hypertension; E78.5 Hyperlipidemia, unspecified; R10.9 Unspecified abdominal pain
CPT/HCPCS: 36415; 76705; 80048; 80076; 83690; 96374; 99284-25; J1885

== ENCOUNTER 2024-03-06 16:22 | Inpatient (IN) | payer OTHER ==
[~2024-03-06] VITALS: Ht 175.3 cm; Wt 91.5 kg
[~2024-03-06 16:22] MED LIST changes: -DORZOLAMIDE-TIM10 ML BOTHEYES; +DORZOLAMIDE-TIM10 ML RIGHTEYE
[2024-03-06 16:55] LABS: BASOPHILS ABSOLUTE AUTO 0.06 K/mm3 (0.00-0.23); BASOPHILS PERCENT AUTO 1 % (0-2); EOSINOPHILS ABSOLUTE AUTO 0.09 K/mm3 (0.00-0.68); EOSINOPHILS PERCENT AUTO 1 % (0-6); Hematocrit 40.1 % (37.0-53.0); Hemoglobin 13.5 g/dL (13.5-17.5); IMMATURE GRAN ABSOLUTE AUTO 0.04 K/mm3 (0.00-0.10); IMMATURE GRAN PERCENT AUTO 0 % (0-1); LYMPHOCYTES ABSOLUTE AUTO 2.74 K/mm3 (0.84-5.20); LYMPHOCYTES PERCENT AUTO 23 % (21-46); MONOCYTES ABSOLUTE AUTO 0.92 K/mm3 (0.16-1.47); MONOCYTES PERCENT AUTO 8 % (4-13); Mean Corpuscular HGB 31.3 pg (26.0-34.0); Mean Corpuscular HGB Conc 33.7 g/dL (31.5-36.5); Mean Corpuscular Volume 93 fL (80-100); NEUTROPHILS ABSOLUTE AUTO 8.04 K/mm3 (1.96-9.15); NEUTROPHILS PERCENT AUTO 68 % (41-73); Platelet Count 278 K/mm3 (150-400); RDW Coefficient Variation 12.5 % (11.7-14.2); RDW Standard Deviation 42.9 fL (35.1-46.3); Red Blood Cell Count 4.32 M/mm3 (4.30-5.90); White Blood Cell Count 11.89 K/mm3 (4.00-11.30)
[2024-03-06 17:06] LABS: Albumin, Blood 3.7 g/dL (3.4-5.0); Albumin/Globulin Ratio 0.9 (0.8-1.8); Bilirubin, Total 0.3 mg/dL (0.1-1.0); Bun/Creatinine Ratio 23.6 (12.0-20.0); Calcium, Blood 9.3 mg/dL (8.5-10.1); Creatinine, Blood 1.06 mg/dL (0.60-1.20); Globulin, Blood 4.3 g/dL (2.2-4.0); Potassium, Blood 3.8 mmol/L (3.5-5.5)
[2024-03-06] MEDS ORDERED: Ondansetron HCl 2 MG / ML 2ML Vial IV ONE (17:25)
[2024-03-06] MEDS ORDERED: Nitroglycerin 0.4 MG SUBL SL PRN (17:25)
[2024-03-06 17:34] LABS: Magnesium, Blood 2.3 mg/dL (1.6-2.4)
[2024-03-06] MEDS ORDERED: Morphine Sulfate 4 MG/1 ML Injection IV ONE ×2 (17:45→18:55)
[2024-03-06] MEDS ORDERED: NS 1,000 ML IV ONE (17:50)
[2024-03-06] MEDS ORDERED: Ondansetron HCl 2 MG / ML 2ML Vial IV PRN (20:15)
[2024-03-06] MEDS ORDERED: Metoclopramide HCl 5MG / ML 2ML Vial IV PRN (20:15)
[2024-03-06] MEDS ORDERED: HYDROmorphone HCl/Pf 1MG SYR IV PRN (20:20)
[2024-03-06] MEDS ORDERED: Lactated Ringer's 1,000 ML IV SCH (20:20)
[2024-03-06] MEDS ORDERED: FLU VACC TS2024-25(6MOS UP)/PF 45 MCG/0.5 ML SYRINGE IM SCH (20:20)
[2024-03-06] MEDS ORDERED: OxyCODONE 5 mg/Acetamin 325 mg TABLET PO PRN (20:25)
[2024-03-06] MEDS ORDERED: Sennosides 8.6 MG Tab PO SCH (21:00)
[2024-03-06 22:29] VITALS: BP 158/66
[2024-03-06] MEDS ORDERED: METFORMIN HCL500 M3 PO (22:37)
[2024-03-06] MEDS ORDERED: DYAZIDE 37.5-21 EACH PO (22:38)
[2024-03-07 00:04] LABS: Triglycerides 97 mg/dL (30-160)
[2024-03-07] MEDS ORDERED: HYDROmorphone HCl/Pf 1MG SYR IV PRN (00:35)
[2024-03-07 04:36] VITALS: BP 148/60
[2024-03-07] MEDS ORDERED: Omeprazole 20 MG CapCR PO SCH (06:00)
--- NOTE | 2024-03-07 07:00 | NUR ---
ASSUMED CARE OF PT- PT WAS ADMITTED TO MEDICAL FLOOR AROUND 2229. COMPLETED 2 RN SKIN CHECK WITH CHAINSTITCH ELASTIC ATTACHER, AFTER SHIFT CHANGE, IT WAS NOT NOTED PRIOR, NO NOTED WOUNDS OR SKIN BREAKDOWN.
[2024-03-07 07:36] VITALS: BP 160/75
[2024-03-07] MEDS ORDERED: Lisinopril 20 MG Tab PO SCH (09:00)
[2024-03-07] MEDS ORDERED: Docusate Sodium 100 MG Cap PO SCH (09:00)
[2024-03-07] MEDS ORDERED: Enoxaparin 40 MG/0.4 ML SYR SC SCH (09:00)
[2024-03-07] MEDS ORDERED: NIFEdipine 90 MG TabCR PO SCH (09:00)
[2024-03-07] MEDS ORDERED: Tamsulosin HCl 0.4 MG Cap PO SCH (09:00)
[2024-03-07 09:32] VITALS: BP 165/73
[2024-03-07 15:25] VITALS: BP 124/59
[2024-03-07 19:45] VITALS: BP 119/56
[2024-03-08 05:00] VITALS: BP 132/64
[2024-03-08 05:07] LABS: Hematocrit 35.3 % (37.0-53.0); Hemoglobin 11.5 g/dL (13.5-17.5); Mean Corpuscular HGB 30.3 pg (26.0-34.0); Mean Corpuscular HGB Conc 32.6 g/dL (31.5-36.5); Mean Corpuscular Volume 93 fL (80-100); Mean Platelet Volume 10.3 fL (9.1-12.4); Platelet Count 218 K/mm3 (150-400); RDW Coefficient Variation 13.1 % (11.7-14.2); RDW Standard Deviation 44.7 fL (35.1-46.3); Red Blood Cell Count 3.79 M/mm3 (4.30-5.90); White Blood Cell Count 13.63 K/mm3 (4.00-11.30)
[2024-03-08 05:31] LABS: Albumin, Blood 2.9 g/dL (3.4-5.0); Albumin/Globulin Ratio 0.8 (0.8-1.8); Bilirubin, Total 0.8 mg/dL (0.1-1.0); Bun/Creatinine Ratio 19.9 (12.0-20.0); Calcium, Blood 8.8 mg/dL (8.5-10.1); Creatinine, Blood 0.96 mg/dL (0.60-1.20); Globulin, Blood 3.5 g/dL (2.2-4.0); Magnesium, Blood 1.9 mg/dL (1.6-2.4); Potassium, Blood 3.7 mmol/L (3.5-5.5); Total Protein, Blood 6.4 g/dL (6.4-8.2)
[2024-03-08 07:52] VITALS: BP 150/64
[2024-03-08 10:45] VITALS: BP 161/87
[2024-03-08] MEDS ORDERED: Ipratropium/Albuterol SulF 2.5-0.5MG/3 ML Amp INH PRN (11:05)
--- NOTE | 2024-03-08 11:10 | NUR ---
CALLED DR ARGUELLO- ASSESSED PT AT THE START OF SHIFT, LUNG SOUNDS WERE CLEAR IN ALL VANCE, RESP RATE WNL. PT GOT UP AND WENT TO THE BATHROOM TO ATTEMPT TO HAVE A BM. AFTER AMBULATING HE DID NOT APPEAR TO BE BREATHING HARD, NO S&S OF DISTRESS SATS 95% ON ROOM AIR. AT THE TIME OF ADMINISTERING MORNING MEDS, PT WAS NOTED TO BE BREATHING MORE RAPIDLY THAN PREVIOUS, HE DENIES SOB, HOWEVER HIS SATS WERE 88-92% ON ROOM AIR, RESP RATE 28. FINE CRACKLES HEARD IN BILATERAL LOWER LOBES. PLACED THE PT ON 2L VIA NC TO MAINTAIN SATS, STOPPED LR INFUSING AT 150ML PER HOUR AND WENT TO SPEAK TO DR ARGUELLO. RECIEVED AN ORDER TO HOLD THE LR UNTIL STAT CHEST XRAY RESULTS WERE IN, STAT CHEST XRAY WAS ORDERED, O2 ORDERED WELL CONT BIOX, AND DUO NEBS ORDERED. PLACED THE BIOX ON THE PT SATS 96% ON 2L VIA NC. CALLED RT HELADIO TO PROVIDE BREATHING Tx.
--- NOTE | 2024-03-08 12:13 | NUR ---
Pt. is awake in his bed when he welcomes my visit. Pt. is known to this optical sales associate from the community. Pt. is pleasant, but is unsettled from his abdominal discomfort. Pt. displays evidence of being engaged and aware. Considered matters of caprice and belief. Ptayed with Pt. Pt. verbalized gratitude for the spiritual care visit and requested that I let his friend Abhishek know that I have visited him. Texted Pts. friend.
[2024-03-08 14:06] VITALS: BP 146/65
--- NOTE | 2024-03-08 14:08 | NUR ---
CALLED IMAGING- STAT CHEST XR WAS COMPLETED AT BEDSIDE AT AROUND 1115, READING IS STILL NOT AVAILABLE. IMAGING IS LOOKING INTO THE ISSUE. PT STATES HE FEELS A LITTLE SHORT OF BREATH, SATS ARE DOWN FROM 96% TO 92% RESP RATE INCREASED AGAIN TO A SHALLOW 28 RESP PER MINUTE. INCREASED O2 FLOW TO 3L VIA NC. TEMP CHECKED ORALY 99.9.
[2024-03-08] MEDS ORDERED: CefTRIAXone Sodium 2,000 MG in NS 100 ML IV SCH (15:30)
[2024-03-08 15:33] VITALS: BP 124/65
[2024-03-08] MEDS ORDERED: NS 250 ML IV PRN (15:50)
--- NOTE | 2024-03-08 18:49 | NUR ---
SHIFT SUMMARY- CALLED DR ARGUELLO THIS EVENING THE PT O2 REQUIREMENTS HAVE INCREASED FURTHER TODAY, FROM THE PREVIOUS NOTE THE PT IS NOW ON 5L VIA NC TO MAINTAIN SATS IN THE LOW 90'S. TEMP HAS BEEN CREEPING UP A LITTLE T/O THE DAY, LAST TEMP CHECK WAS 100.9 RECIEVD AN ORDER FOR 20MG IV LASIX AND TYLENOL PRN. PLACED ORDER IN ORDER MANAGEMENT. PT IS CURRENTLY IN BED, CALL LIGHT IN REACH, PT ON 5L VIA NC WITH CONT PULSE OX IN PLACE. WILL PASS ON ORDERS TO NIGHT RN IN BEDSIDE REPORT. RESP PANEL COLLECTED AND THE PT IS IN ISO PENDING THE RESULT.
[2024-03-08] MEDS ORDERED: Acetaminophen 325 MG TABLET PO PRN (18:50)
[2024-03-08] MEDS ORDERED: Furosemide 10 MG / ML 2ML Vial IV ONE (18:50)
[2024-03-08 19:11] LABS: Adenovirus Not Detected (NOT DETECT); Coronavirus 229E Not Detected (NOT DETECT); Coronavirus HKU1 Not Detected (NOT DETECT); Coronavirus NL63 Not Detected (NOT DETECT); Coronavirus OC43 Not Detected (NOT DETECT); Human Metapneumovirus Not Detected (NOT DETECT); SARS-Cov-2 (COVID-19), BioFire Not Detected (NOT DETECT)
[2024-03-08 19:12] LABS: Bordetella pertussis Not Detected (NOT DETECT); Chlamydophila pneumoniae Not Detected (NOT DETECT); Human Rhinovirus/Enterovirus Not Detected (NOT DETECT); Influenza A/2009-H1 Not Detected (NOT DETECT); Influenza A/H1 Not Detected (NOT DETECT); Influenza A/H3 Not Detected (NOT DETECT); Influenza B Not Detected (NOT DETECT); Mycoplasma pneumoniae Not Detected (NOT DETECT); Parainfluenza Virus 1 Not Detected (NOT DETECT); Parainfluenza Virus 2 Not Detected (NOT DETECT); Parainfluenza Virus 3 Not Detected (NOT DETECT); Parainfluenza Virus 4 Not Detected (NOT DETECT); Respiratory Syncytial Virus Not Detected (NOT DETECT)
[2024-03-08 19:49] VITALS: BP 117/61
[2024-03-09 02:21] VITALS: BP 125/58
--- NOTE | 2024-03-09 05:01 | NUR ---
A&OX4, VSS, MEDICATED FOR C/O EPIGASRTIC PAIN X3 THIS SHIFT, IV LASIX ADMIN AT 2000 W/675ML OUTPUT, REMAINS ON 5L O2 VIA NC-SPO2 92% THIS AM, SLEEPING AT THIS TIME, CALL LIGHT IN REACH, WILL CONT TO MONITOR UNTIL REPORT GIVEN TO ONCOMING NURSE.
[2024-03-09 05:14] LABS: Hematocrit 35.7 % (37.0-53.0); Hemoglobin 11.8 g/dL (13.5-17.5); Mean Corpuscular HGB 30.7 pg (26.0-34.0); Mean Corpuscular HGB Conc 33.1 g/dL (31.5-36.5); Mean Corpuscular Volume 93 fL (80-100); Mean Platelet Volume 10.5 fL (9.1-12.4); Platelet Count 222 K/mm3 (150-400); RDW Standard Deviation 44.3 fL (35.1-46.3); Red Blood Cell Count 3.84 M/mm3 (4.30-5.90); White Blood Cell Count 13.28 K/mm3 (4.00-11.30)
[2024-03-09 05:48] LABS: Albumin, Blood 2.7 g/dL (3.4-5.0); Albumin/Globulin Ratio 0.7 (0.8-1.8); Bilirubin, Total 3.4 mg/dL (0.1-1.0); Calcium, Blood 8.7 mg/dL (8.5-10.1); Creatinine, Blood 0.91 mg/dL (0.60-1.20); Potassium, Blood 3.7 mmol/L (3.5-5.5); Total Protein, Blood 6.7 g/dL (6.4-8.2)
[2024-03-09 07:27] VITALS: BP 164/71
[2024-03-09] MEDS ORDERED: Bisacodyl 10 MG Supp PR PRN (09:00)
[2024-03-09] MEDS ORDERED: Albuterol 2.5 MG/3 ML VIAL INH PRN (11:30)
[2024-03-09] MEDS ORDERED: Amylase/Lipase/Protease DR Cap 12,000 PO SCH (12:30)
[2024-03-09 16:33] VITALS: BP 156/68
--- NOTE | 2024-03-09 18:12 | NUR ---
SHIFT SUMMARY- PT ALERT AND ORIENTED, 1PA TO THE BATHROOM. PAIN HAS BEEN DIFFICULT TO CONTROL FOR HIM TODAY, HE HAD AN EPISODE OF DRY HEAVING WITH A LITTLE VOMIT (10 ML OR LESS) IV AND PO PAIN MEDS SEEM TO WORK WELL TOGETHER. PT STATES NO STOOL SINCE THURSDAY, RECIEVED AN ORDER FOR BISICODYL SUPPOSITORY, PT RECIEVED A SUPPOSITORY AND A DOSE OF IV REGLAN; WHEN HE ROLLED FOR THE SOUUPSITORY HE BEGAN DRY HEAVING AND VOMITED A LITTLE. SEVERAL HOURS LATER HE HAD A STOOL, HOWEVER HE FLUSHED IT PRIOR TO STAFF SEEING IT. HE STATES IT WAS SOFT AND FORMED AND NORMAL SIZED. PT IN BED, CALL LIGHT IN REACH NO S&S OF DISTRESS AT THIS TIME.
--- NOTE | 2024-03-09 18:33 | NUR ---
Pt. is sitting up on the side of his bed and welcomes my visit. Pt. is known to this skiing instructor from the community so rapport is quickly re-established. Pt. verbalized about the significant pain he had experienced earlier in the day. Listen with empathy and a calmling presence. Also seek to normalize the Pt. experience. Pt. displayed evidence of being encouraged. Prayed with Pt. Pt. verbalized gratitude for the spiritual care visit. Will remain available tothe Pt.
[2024-03-09 19:47] VITALS: BP 111/64
[2024-03-10 02:29] VITALS: BP 123/65
[2024-03-10 04:55] LABS: BASOPHILS ABSOLUTE AUTO 0.03 K/mm3 (0.00-0.23); BASOPHILS PERCENT AUTO 0 % (0-2); EOSINOPHILS ABSOLUTE AUTO 0.02 K/mm3 (0.00-0.68); EOSINOPHILS PERCENT AUTO 0 % (0-6); Hematocrit 34.6 % (37.0-53.0); Hemoglobin 11.5 g/dL (13.5-17.5); IMMATURE GRAN ABSOLUTE AUTO 0.09 K/mm3 (0.00-0.10); IMMATURE GRAN PERCENT AUTO 1 % (0-1); LYMPHOCYTES ABSOLUTE AUTO 0.76 K/mm3 (0.84-5.20); LYMPHOCYTES PERCENT AUTO 8 % (21-46); MONOCYTES ABSOLUTE AUTO 1.22 K/mm3 (0.16-1.47); MONOCYTES PERCENT AUTO 12 % (4-13); Mean Corpuscular HGB 30.7 pg (26.0-34.0); Mean Corpuscular HGB Conc 33.2 g/dL (31.5-36.5); Mean Corpuscular Volume 93 fL (80-100); Mean Platelet Volume 10.2 fL (9.1-12.4); NEUTROPHILS ABSOLUTE AUTO 7.76 K/mm3 (1.96-9.15); NEUTROPHILS PERCENT AUTO 79 % (41-73); Platelet Count 228 K/mm3 (150-400); RDW Coefficient Variation 12.8 % (11.7-14.2); RDW Standard Deviation 43.3 fL (35.1-46.3); Red Blood Cell Count 3.74 M/mm3 (4.30-5.90); White Blood Cell Count 9.88 K/mm3 (4.00-11.30)
[2024-03-10 05:36] LABS: Albumin, Blood 2.3 g/dL (3.4-5.0); Albumin/Globulin Ratio 0.6 (0.8-1.8); Bilirubin, Total 4.6 mg/dL (0.1-1.0); Calcium, Blood 8.6 mg/dL (8.5-10.1); Creatinine, Blood 1.08 mg/dL (0.60-1.20); Globulin, Blood 4.1 g/dL (2.2-4.0); Potassium, Blood 3.5 mmol/L (3.5-5.5); Total Protein, Blood 6.4 g/dL (6.4-8.2)
--- NOTE | 2024-03-10 06:20 | NUR ---
A&OX4, VSS, SIGNIFICANTLY LESS PAINFUL THAN PREVIOUS NIGHT, MEDICATED X2 W/PERC FOR ABD PAIN, SLEPT WELL THIS SHIFT, WAKING EASILY FOR CARES, SLEEPING AT THIS TIME, CALL LIGHT IN REACH, WILL CONT TO MONITOR UNTIL REPORT GIVEN TO ONCOMING NURSE.
[2024-03-10 07:21] VITALS: BP 84/47
[2024-03-10 07:34] VITALS: BP 97/62
[2024-03-10] MEDS ORDERED: Ipratropium/Albuterol SulF 2.5-0.5MG/3 ML Amp INH SCH (11:05)
--- NOTE | 2024-03-10 14:01 | NUR ---
Pt. is sitting up on the side of his bed and welcomes my visit. Nephew is at [facility] Facilitate a short update before I excuse myself. Pt. verbalized gratitude for the spiritual care visit and welcomed this strategic marketing associate to return.
[2024-03-10 15:22] VITALS: BP 126/62
--- NOTE | 2024-03-10 18:02 | NUR ---
SHIFT SUMMARY: PATIENT IS A&OX4/INDEPENDENT/SBA WITH FWW, CALLS APPROPRIATELY. HE C/O NO PAIN THROUGHOUT THE SHIFT, CONTINUES TO TOLERATE A CLEAR LIQUID DIET, HAD A BOWEL MOVEMENT, AND IS NOW ON 2 L NASAL CANNULA VERSUS 6; TO MAINTAIN AN OXYGEN SATURATION OF 90% OR GREATER; NO CHANGES IN RESPIRATORY EFFORTS WITH O2 DECREASE; PT REPORTS BREATHING IS "GOOD" THE PLAN IS TO HAVE THE PATIENT UNDERGO A HIDA SCAN TOMORROW 03/11/23 AROUND 1200; PT IS TO BE COMPLETELY NPO AND NO NARCOTICS AT LEAST 6 HOURS PRIOR TO THE SCAN. NURSE NOTIFY PLACED. PATIENT WAS ALSO EDUCATED TO NOT HAVE ANYTHING BY MOUTH BY 0600 AND NO PAIN MEDS; WHICH SHOULDN'T BE AN ISSUE WITH PATIENT NOT HAVING ANY PAIN. HE IS SITTING AT BEDSIDE, CALL LIGHT WITHIN REACH, NO SIGNS OR SYMPTOMS OF DISTRESS, PLAN OF CARE ONGOING.
[2024-03-10 19:27] VITALS: BP 126/56
[2024-03-10] MEDS ORDERED: Lactobacil 2-S.Thermo-Bifido 1 1 Cap PO SCH (21:00)
[2024-03-11] VITALS (7 sets, daily range): BP systolic 94–144; BP diastolic 54–81
[2024-03-11 05:20] LABS: Albumin, Blood 2.4 g/dL (3.4-5.0); Albumin/Globulin Ratio 0.6 (0.8-1.8); Bilirubin, Total 1.9 mg/dL (0.1-1.0); Bun/Creatinine Ratio 26.8 (12.0-20.0); Calcium, Blood 8.6 mg/dL (8.5-10.1); Creatinine, Blood 0.9 mg/dL (0.60-1.20); Globulin, Blood 4.3 g/dL (2.2-4.0); Potassium, Blood 3.3 mmol/L (3.5-5.5); Total Protein, Blood 6.7 g/dL (6.4-8.2)
--- NOTE | 2024-03-11 05:49 | NUR ---
A&O, DENIED PAIN T/O SHIFT, STATES HE IS "HUNGRY AND FEELING MUCH BETTER" SLEEPING AT THIS TIME, CALL LIGHT IN REACH, WILL CONT TO MONITOR UNTIL REPORT GIVEN TO ONCOMING NURSE.
--- NOTE | 2024-03-11 11:40 | NUR ---
PATIENT RETURNED FROM HIDA SCAN; CALLED DR. FARIAS TO LEFT HIM KNOW. ASKED IF PATIENT COULD EAT; PER DR. FARIAS OKAY TO CONTINUE ON CLEARS, AND TO NOT TAKE ANY ORAL MEDICATOINS AT THIS TIME UNTIL RESULTS ARE BACK AND REVIEWED. PATIENT NOTIFIED.
[2024-03-11] MEDS ORDERED: Potassium Chloride 40 MEQ in NS 250 ML IV STA (14:18)
[2024-03-11] MEDS ORDERED: Potassium Chloride 40 MEQ IV ONE (14:20)
--- NOTE | 2024-03-11 14:57 | NUR ---
[address] FARIAS TO NOTIFIED HIM OF HIDA SCAN RESULTS; PER DR. FARIAS PATIENT OKAY TO ADVANCE HIS DIET TO A "BLAND" DIET AND OKAY TO TAKE MEDICATIONS. 1338 SENIOR RESEARCH CONSULTANT CALLED TO NOTIFY THIS RN THAT PATIENT'S CONTINUES BI OX WAS ALARMING. PATIENT'S HR WAS AT 140 AND SUSTAINING. PATIENT'S VITALS OBTAINED, MORNING MEDICATIONS GIVEN, AND CALL MADE TO DR. FARIAS. ADVISED TO DO AN EKG. EKG COMPLETED AND SHOWED SVT RATE 150; DR. FARIAS REVIEWED AT BEDSIDE AND ASKED FOR ANOTHER EKG THAT SHOWED SVT WITH PACS RATE 110. NO SIGNS OR SYMPTOMS OF DISTRESS WITH PATIENT. PATIENT STARTED ON IV POTASSIUM AND TELE ORDERED AND PLACED. PATIENT SINUS TACH AT 107. PLAN OF CARE ONGOING.
--- NOTE | 2024-03-11 15:34 | NUR ---
CALLED DR. FARIAS AND NOTIFIED HIM THAT PATIENT IS NOT TOLERATING THE IV POTASSIUM REGUARDLESS OF RUNNING WITH SALINE AND TURNING DOWN THE RATE. PER DR. FARIAS CHANGE TO PO.
[2024-03-11] MEDS ORDERED: Magnesium Sulf 2 GM/Water 50ML 50 ML IV ONE (15:35)
[2024-03-11] MEDS ORDERED: Potassium Chloride 20 MEQ TabCR PO ONE (16:00)
--- NOTE | 2024-03-11 16:26 | NUR ---
TELE CALLED AT 1540 TELE CALLED AND REPORTED THAT PATIENT'S HEART RATE WAS 160'S. TELEMETRY STATED THAT THE PATIENT'S RATE WAS "VT" THIS RN ASKED "SVT?" AND THE TRASH TRUCK DRIVER STATED NO "VT" "V-TACH" PATIENT APPEARING FINE NO SIGNS OR SYMPTOMS OF DISTRESS, VITALS OBTAINED, ALONG WITH EKG, CALL MADE TO DINORA SHIRLEY AND NOTIFIED. DR. FARIAS CAME TO BEDSIDE AND REVIEWED EKG. CONFIRMED WITH TELEMETRY (DIFFERENT TECH) THAT REPORTS THAT THE PATIENT HAS BEEN IN SVT WITH OCASSIONAL PACS, BUT NO V TACH, A FIB, OR FLUTTER. PATIENT AGAIN STATES THAT HE FEELS FINE AND THAT THE MACHINES ARE BROKEN. VITALS STABLE. PO POTASSIUM AND IV MAGNESIUM HUNG. DR. FARIAS PLACED NEW ORDERS. NO SIGNS OR SYMPTOMS OF DISTRESS WITH PATIENT. PLAN OF CARE ONGOING.
[2024-03-11] MEDS ORDERED: Metoprolol Tartrate 50 MG Tab PO SCH (17:00)
--- NOTE | 2024-03-11 17:16 | NUR ---
SHIFT SUMMARY: SEE NURSES NOTES ABOUT DOCUMENTED EVENTS THAT OCCURED DURING THE SHIFT REGUARDING PATIENT'S' HEART RATE. PATIENT CURRENT LAYING IN BED, ALERT, EATING SALTINE CRACKERS, PATIENT HAS CALL LIGHT WITHIN REACH, NO SIGNS OR SYMPTOMS OF DISTRESS, ON ROOMAIR, TELE SINUS TACH 110. PLAN OF CARE ONGOING. (DR. FARIAS STATED THAT HE WOULD LIKE FOR THE PATIENT TO ADVANCE TO A BLAND DIET, BUT UNFORTUATELY THAT ISN'T AN OPTION IN OUR ORDERING, SO ORDERED THE PATIENT A HEART HEALTHY DIET AND WILL MODIFY TRAY IT COMES TO FIT A BLAND DIET. SO FAR PATIENT IS TOLERATING SALTINE CRACKERS.
--- NOTE | 2024-03-11 18:48 | NUR ---
PATIENT CALLED REPORTING THAT HE STARTED EXPERIENCING SIMILIAR PAIN THAT HE WAS HAVING WHEN HE FIRST CAME INTO THE HOSPITAL. HE STATES THAT HE IS AFRAID TO EAT. PT HAS TO 2-2 PACKS OF SALTINES AND PARTIAL OF HIS CLEAR LIQUID DINNER TRAY. HE STATES THAT THE PAIN IS EPIGASTRIC/STERNAL AND RADIATES TO HIS BACK. HE DENIES SHORTNESS OF BREATH, NUMBNESS/TINGLING, OR RADIATING PAIN. PATIENT REQUEST SOMETHING FOR PAIN AND INDESTION. CALL MADE TO DR. FARIAS AND NOTIFIED. PER DR. VILLARREAL TO GIVE PAIN MEDICATION, KEEP PATIENT ON CLEAR LIQUID DIET, AND TO ORDER MALOX 60 ML EVERY 4 HOURS NEEDED. PATIENT SITTING AT BEDSIDE, COMPLAINING OF PAIN, BUT NO SIGNS OR SYMPTOMS OF DISTRESS, PLAN OF CARE ONGOING.
[2024-03-11] MEDS ORDERED: Mag Hydrox/AL Hydrox/Simeth 30 ML UDC PO PRN (18:55)
[2024-03-11] MEDS ORDERED: Famotidine 20 MG Tab PO SCH (21:00)
[2024-03-12 03:21] VITALS: BP 110/58
--- NOTE | 2024-03-12 05:35 | NUR ---
SHIFT SUMMARY PT A&Ox4. MEDICATED FOR EPIGASTRIC PAIN PER EMAR. PER RF ENGINEER, PT HAS BEEN GOING BACK AND FORTH BETWEEN NSR IN THE 70's AND A-FLUTTER. NO ACUTE CHANGES. VSS. BED IN LOWEST POSITION AND CALL LIGHT IN REACH.
[2024-03-12 06:06] LABS: BASOPHILS ABSOLUTE AUTO 0.04 K/mm3 (0.00-0.23); BASOPHILS PERCENT AUTO 1 % (0-2); EOSINOPHILS PERCENT AUTO 1 % (0-6); Hematocrit 32.9 % (37.0-53.0); IMMATURE GRAN ABSOLUTE AUTO 0.14 K/mm3 (0.00-0.10); IMMATURE GRAN PERCENT AUTO 2 % (0-1); LYMPHOCYTES ABSOLUTE AUTO 0.98 K/mm3 (0.84-5.20); LYMPHOCYTES PERCENT AUTO 12 % (21-46); MONOCYTES ABSOLUTE AUTO 1.07 K/mm3 (0.16-1.47); MONOCYTES PERCENT AUTO 14 % (4-13); Mean Corpuscular HGB 31.1 pg (26.0-34.0); Mean Corpuscular HGB Conc 33.4 g/dL (31.5-36.5); Mean Corpuscular Volume 93 fL (80-100); NEUTROPHILS ABSOLUTE AUTO 5.56 K/mm3 (1.96-9.15); NEUTROPHILS PERCENT AUTO 70 % (41-73); Platelet Count 270 K/mm3 (150-400); RDW Standard Deviation 44.3 fL (35.1-46.3); Red Blood Cell Count 3.54 M/mm3 (4.30-5.90); White Blood Cell Count 7.89 K/mm3 (4.00-11.30)
[2024-03-12 06:41] LABS: Albumin, Blood 2.2 g/dL (3.4-5.0); Albumin/Globulin Ratio 0.6 (0.8-1.8); Bun/Creatinine Ratio 24.3 (12.0-20.0); Calcium, Blood 8.4 mg/dL (8.5-10.1); Creatinine, Blood 0.74 mg/dL (0.60-1.20); Potassium, Blood 3.6 mmol/L (3.5-5.5); Total Protein, Blood 6.2 g/dL (6.4-8.2)
[2024-03-12 07:42] VITALS: BP 127/59
[2024-03-12 15:25] VITALS: BP 123/59
--- NOTE | 2024-03-12 16:30 | NUR ---
SHIFT SUMMARY: NO EVENTS WITH THE PATIENT THROUGHOUT THE SHIFT. HE HAS REMAINED IN SR, HAS DENIED PAIN, EVEN AFTER EATING A REGULAR DIET FOR LUNCH. HE UNDERWENT A ECHO; RESULTS AVAILABLE. HE IS IN BED, RESTING, RESPIRATION EVEN AND LABORED, OXYGEN SATURATION 94% ON ROOMAIR, CALL LIGHT WITHIN REACH, NO SIGNS OR SYMPTOMS OF DISTRESS, PLAN OF CARE ONGOING.
[2024-03-12] MEDS ORDERED: Rivaroxaban 10 MG Tab PO SCH (18:00)
[2024-03-12 19:21] VITALS: BP 126/53
[2024-03-13 03:06] VITALS: BP 106/56
--- NOTE | 2024-03-13 04:57 | NUR ---
SHIFT SUMMARY PT A&Ox4 AND PLEASANT. PT MEDICATED WITH TYLENOL FOR STIFF NECK. NOT C/O ABD PAIN. PT UP TO THE BATHROOM AROUND 0015 AND PER WHARF BUILDER, PT HAD A 3.4 SECOND PAUSE BEFORE GOING BACK TO NSR @ 88. PT WAS ASYMPTOMATIC AND VSS. NO ACUTE CHANGES. BED IN LOWEST POSITION AND CALL LIGHT IN REACH.
[2024-03-13 06:30] LABS: Bun/Creatinine Ratio 21.3 (12.0-20.0); Calcium, Blood 8.1 mg/dL (8.5-10.1); Creatinine, Blood 0.75 mg/dL (0.60-1.20); Magnesium, Blood 2.5 mg/dL (1.6-2.4); Potassium, Blood 3.6 mmol/L (3.5-5.5)
[2024-03-13 07:26] VITALS: BP 150/78
[2024-03-13] MEDS ORDERED: FAMO20 PO (10:51)
[2024-03-13] MEDS ORDERED: CREON DR 12,001 EACH PO (10:52)
[2024-03-13] MEDS ORDERED: METO50ER PO (10:53)
[2024-03-13] MEDS ORDERED: XARELTO20 MG PO (10:54)
[2024-03-13] MEDS ORDERED: SENN187 PO (10:54)
--- NOTE | 2024-03-13 12:17 | NUR ---
DISCHARGE SUMMARY PT DISCHARGED TO HOME. PT LEFT ROOM PRIOR TO THIS NOTE WITH CREW PERSON ESCORT. ALL DISCHARGE INSTRUCTIONS DISCUSSED, ALL QUESTIONS ANSWERED. PT AGREES TO FOLDER STITCHER OPERATOR MEDICATIONS FROM PHARMACY TODAY, HOWEVER PT'S PHARMACY IS NOT OPEN TODAY. PT REFUSED TO HAVE THIS NURSE SEND PRESCRIPTIONS TO OPEN PHARMACY. PT AGREES TO FOLLOW UP WITH PCP AND LOW FAT DIET. IV DC'S AND BELONGINGS RETURNED.
== END 2024-03-13 11:50 | disposition home or self-care (01) | DRG 438 ==
LOC: ER 16:22 → MEDS 16:23 → ERHOLD 16:23 → ER 20:14 → MEDS 20:14 → UNDODEPER 03-07 22:12 → MEDS 03-11 14:17
PROVIDERS: Emergency Medicine; Hospitalist; Internal Medicine; Nurse Practitioner Acute Care; Student in an Organized Health Care Education/Training Program; ADMIT Internal Medicine
DX: K85.10 Biliary acute pancreatitis without necrosis or infection (principal); J18.9 Pneumonia, unspecified organism; F11.20 Opioid dependence, uncomplicated; I48.92 Unspecified atrial flutter; I47.10 Supraventricular tachycardia, unspecified; K80.20 Calculus of gallbladder without cholecystitis without obstruction; K76.0 Fatty (change of) liver, not elsewhere classified; H40.9 Unspecified glaucoma; I48.91 Unspecified atrial fibrillation; K21.9 Gastro-esophageal reflux disease without esophagitis; E87.6 Hypokalemia; E83.42 Hypomagnesemia; I10 Essential (primary) hypertension; N40.0 Benign prostatic hyperplasia without lower urinary tract symptoms; E11.9 Type 2 diabetes mellitus without complications; I70.1 Atherosclerosis of renal artery; E66.9 Obesity, unspecified; G89.4 Chronic pain syndrome; Z79.899 Other long term (current) drug therapy; Z87.891 Personal history of nicotine dependence; Z68.32 Body mass index [BMI] 32.0-32.9, adult; Z86.14 Personal history of Methicillin resistant Staphylococcus aureus infection
CPT/HCPCS: 0202U; 36415; 71045; 71275; 74174; 78226; 80048; 80053; 83690; 83735; 84145; 84478; 84484; 85025; 85027; 93005; 93010; 93306; 94640; 94664; 94760; 94762; 96361; 96374-59; 96375-59; 96376-59; 99285-25; A9270; A9537; J0696; J1171; J1650; J1940; J2270; J2405; J2765; J3475; J3480; J7030; J7050; J7120; Q9967

== ENCOUNTER 2024-03-29 13:26 | Inpatient (IN) | payer OTHER ==
[~2024-03-29] VITALS: Ht 175.3 cm; Wt 87.0 kg
[~2024-03-29 13:26] MED LIST changes: +CREON DR 12,001 EACH PO; +METFORMIN HCL500 M3 PO; +METO50 PO; +SENN187 PO; +XARELTO20 MG PO
[2024-03-29 15:04] LABS: BASOPHILS ABSOLUTE AUTO 0.03 K/mm3 (0.00-0.23); BASOPHILS PERCENT AUTO 0 % (0-2); EOSINOPHILS ABSOLUTE AUTO 0.02 K/mm3 (0.00-0.68); EOSINOPHILS PERCENT AUTO 0 % (0-6); Hematocrit 39.9 % (37.0-53.0); Hemoglobin 13.2 g/dL (13.5-17.5); IMMATURE GRAN ABSOLUTE AUTO 0.07 K/mm3 (0.00-0.10); IMMATURE GRAN PERCENT AUTO 1 % (0-1); LYMPHOCYTES PERCENT AUTO 9 % (21-46); MONOCYTES ABSOLUTE AUTO 1.01 K/mm3 (0.16-1.47); MONOCYTES PERCENT AUTO 8 % (4-13); Mean Corpuscular HGB 30.4 pg (26.0-34.0); Mean Corpuscular HGB Conc 33.1 g/dL (31.5-36.5); Mean Corpuscular Volume 92 fL (80-100); Mean Platelet Volume 9.6 fL (9.1-12.4); NEUTROPHILS ABSOLUTE AUTO 10.57 K/mm3 (1.96-9.15); NEUTROPHILS PERCENT AUTO 82 % (41-73); Platelet Count 402 K/mm3 (150-400); RDW Coefficient Variation 12.5 % (11.7-14.2); RDW Standard Deviation 42.3 fL (35.1-46.3); Red Blood Cell Count 4.34 M/mm3 (4.30-5.90)
[2024-03-29 15:37] LABS: Alanine Aminotransfer (ALT/SGP 191 U/L (12-78); Albumin, Blood 3.6 g/dL (3.4-5.0); Albumin/Globulin Ratio 0.8 (0.8-1.8); Alk Phos 185 U/L (50-136); Anion Gap 12 mmol/L (3-11); Aspartate Aminotrans (AST/SGOT 162 U/L (12-37); Bilirubin, Total 3.5 mg/dL (0.1-1.0); Blood Urea Nitrogen 28 mg/dL (8-24); Bun/Creatinine Ratio 20.6 (12.0-20.0); CO2, Blood 21 mmol/L (21-32); Calcium, Blood 9.8 mg/dL (8.5-10.1); Chloride, Blood 109 mmol/L (98-108); Creatinine, Blood 1.36 mg/dL (0.60-1.20); Globulin, Blood 4.6 g/dL (2.2-4.0); Glomerular Filtration Rate 53 (60-); Glucose, Blood 159 mg/dL (70-99); Potassium, Blood 4.2 mmol/L (3.5-5.5); Sodium, Blood 138 mmol/L (136-145); Total Protein, Blood 8.2 g/dL (6.4-8.2)
[2024-03-29] MEDS ORDERED: Ondansetron HCl 2 MG / ML 2ML Vial IV ONE ×2 (15:45→18:10)
[2024-03-29] MEDS ORDERED: Morphine Sulfate 4 MG/1 ML Injection IV ONE ×2 (16:20→18:10)
[2024-03-29] MEDS ORDERED: HYDROmorphone HCl/Pf 1MG SYR IV ONE (18:15)
[2024-03-29] MEDS ORDERED: Ondansetron HCl 2 MG / ML 2ML Vial ONE (18:21)
[2024-03-29] MEDS ORDERED: Metoclopramide HCl 5MG / ML 2ML Vial IV ONE (19:45)
[2024-03-29] MEDS ORDERED: Lactated Ringer's 1,000 ML IV SCH (22:00)
[2024-03-29] MEDS ORDERED: Ondansetron HCl 2 MG / ML 2ML Vial IV PRN (22:00)
[2024-03-29] MEDS ORDERED: HYDROmorphone HCl/Pf 1MG SYR IV PRN (22:05)
[2024-03-29] MEDS ORDERED: Labetalol HCL 5 MG/ML 4ML Injection (Single Dose) IV PRN (22:05)
--- NOTE | 2024-03-29 23:07 | NUR ---
ADMIT NOTE 78 YR OLD MALE ADMITTED TO FLOOR FROM THE ED WITH DX OF ACUTE PANCREATITIS. ALERT AND OREINTED, SLOW TRO RESPOND. WEAK, 2 ASSISTED FROM GURNEY TO BED. ORIENTED TO USE OF CALL LIGHT. CALL LIGHT IN REACH. PLACED ON TELE. RESPS EVEN. VSS. WILL CONT TO MONITOR
[2024-03-29 23:09] VITALS: BP 163/69
[2024-03-29] MEDS ORDERED: METH10 PO (23:22)
[2024-03-29] MEDS ORDERED: DOCU100 PO (23:23)
[2024-03-30] VITALS (15 sets, daily range): BP systolic 127–171; BP diastolic 55–76
[2024-03-30] MEDS ORDERED: Insulin Human Lispro 100 Units/ML 3ML Syringe SC SCH
[2024-03-30] MEDS ORDERED: TIMDOROPSO RIGHTEYE (03:01)
[2024-03-30] MEDS ORDERED: SENN187 PO (03:03)
--- NOTE | 2024-03-30 03:23 | NUR ---
MEDICAL DEVICE SUMMARY BP ELEVATED, OTHERWISE VSS. ADMITTED EARLIER IN THE SHIFT WITH DX OF PANCREATITIS. NPO, IVF OF LR INFUSING. PAIN FRONT DESK ADMIN PER REQUEST OF 9 OUT OF 10 PAIN. MED EFFECTIVE. HAS BEEN RESING QUIETLY WITH FEW INTERRUPTIONS SINCE. CALL LIGHT IN REACH, RAILS UP X AND BED IN LOW POSITION FOR SAFETY. WILL CONT TO MONITOR.
[2024-03-30 05:18] LABS: BASOPHILS ABSOLUTE AUTO 0.03 K/mm3 (0.00-0.23); BASOPHILS PERCENT AUTO 0 % (0-2); EOSINOPHILS ABSOLUTE AUTO 0.01 K/mm3 (0.00-0.68); EOSINOPHILS PERCENT AUTO 0 % (0-6); Hematocrit 39.4 % (37.0-53.0); Hemoglobin 12.5 g/dL (13.5-17.5); IMMATURE GRAN ABSOLUTE AUTO 0.06 K/mm3 (0.00-0.10); IMMATURE GRAN PERCENT AUTO 0 % (0-1); LYMPHOCYTES ABSOLUTE AUTO 0.68 K/mm3 (0.84-5.20); LYMPHOCYTES PERCENT AUTO 4 % (21-46); MONOCYTES ABSOLUTE AUTO 1.42 K/mm3 (0.16-1.47); MONOCYTES PERCENT AUTO 9 % (4-13); Mean Corpuscular HGB 29.8 pg (26.0-34.0); Mean Corpuscular HGB Conc 31.7 g/dL (31.5-36.5); Mean Corpuscular Volume 94 fL (80-100); Mean Platelet Volume 9.6 fL (9.1-12.4); NEUTROPHILS ABSOLUTE AUTO 14.03 K/mm3 (1.96-9.15); NEUTROPHILS PERCENT AUTO 86 % (41-73); Platelet Count 332 K/mm3 (150-400); RDW Coefficient Variation 12.9 % (11.7-14.2); White Blood Cell Count 16.23 K/mm3 (4.00-11.30)
[2024-03-30 05:36] LABS: International Normalized Ratio 1.02; Prothrombin Time Results 10.9 Sec (9.7-11.5)
[2024-03-30 05:53] LABS: Albumin, Blood 3.4 g/dL (3.4-5.0); Albumin/Globulin Ratio 0.7 (0.8-1.8); Bilirubin, Total 1.2 mg/dL (0.1-1.0); Calcium, Blood 9.7 mg/dL (8.5-10.1); Creatinine, Blood 1.27 mg/dL (0.60-1.20); Globulin, Blood 4.6 g/dL (2.2-4.0); Magnesium, Blood 2.1 mg/dL (1.6-2.4)
[2024-03-30] MEDS ORDERED: Tamsulosin HCl 0.4 MG Cap PO SCH (09:00)
[2024-03-30] MEDS ORDERED: Indocyanine Green 25 MG Vial IV ONE (10:00)
[2024-03-30] MEDS ORDERED: Lactated Ringer's 1,000 ML IV SCH ×2 (10:00→20:50)
--- NOTE | 2024-03-30 10:34 | NUR ---
Pt. is awake in bed and welcomes my visit. A family member (or friend is at bedside). Facilitate an update as this pt. is known to this body coverer from previous visits and the community. Pt. verbalized an expectation of have surgery sometime today. Listened with empathy and a calming presence seeking to normalize the Pt. expereince. Prayed with Pt. Pt. verbalized gratitude for the spiritual care visit and welcomed this body coverer to return.
[2024-03-30] MEDS ORDERED: Sugammadex Sodium 200 MG/2ML SDV (100 MG/ML) ONE (16:04)
[2024-03-30] MEDS ORDERED: Dexamethasone Sod Phos 10 MG/ML 1ML VIAL ONE (16:04)
[2024-03-30] MEDS ORDERED: FentaNYL Citrate 50 MCG/ML 5 ML Injection ONE (16:04)
[2024-03-30] MEDS ORDERED: Ondansetron HCl 2 MG / ML 2ML Vial ONE (16:04)
[2024-03-30] MEDS ORDERED: Rocuronium Bromide 10 MG/ML 5ML Injection IV ONE (16:04)
[2024-03-30] MEDS ORDERED: propofoL 20 ML IV ONE (16:04)
--- NOTE | 2024-03-30 16:59 | NUR ---
SHIFT SUMMARY MR SULTANA IS OX4. UPPER ABDOMINAL/STERNAL PAIN THROUGH TO BACK UP TO 12/02 HELPED WITH DILAUDID IV. SOME NAUSEA/SMALL AMOUNT OF EMESIS RESOLVED. IVF AT 150CC/HR THROUGHOUT THE SHIFT. NPO STATUS FOR SURGERY. HEADING OUT TO OR AT 1700HRS ON STRETCHER. REPORT TO MANDY ERICKSON ON SURGICAL FLOOR. PT HAS SOME FOOT DROP/POOR FOOT STRENGTH. ASSISTED TO CHAIR WITH 2 PEOPLE WITH UNSTEADY GAIT. BED ALARM WAS ON TODAY.
[2024-03-30] MEDS ORDERED: Bupivacaine 0.5% HCl 5 MG/ML 30MLVIAL ONE (17:26)
[2024-03-30] MEDS ORDERED: CeFAZolin Sodium 2,000 MG in NS 100 ML IV SCH (17:35)
[2024-03-30] MEDS ORDERED: HydrALAZINE HCl 20 MG / ML 1ML Vial IV PRN (20:25)
[2024-03-30] MEDS ORDERED: Ondansetron HCl 2 MG / ML 2ML Vial IV PRN (20:25)
[2024-03-30] MEDS ORDERED: Metoclopramide HCl 5MG / ML 2ML Vial IV PRN (20:25)
[2024-03-30] MEDS ORDERED: Labetalol HCL 5 MG/ML 4ML Injection (Single Dose) IV PRN (20:25)
[2024-03-30] MEDS ORDERED: Atropine Sulfate 0.1 MG/ML 10ML SYR IV PRN (20:25)
[2024-03-30] MEDS ORDERED: ePHEDrine Sulfate 50 MG/ML 1ML Injection IV PRN (20:25)
[2024-03-30] MEDS ORDERED: Albuterol 2.5 MG/3 ML VIAL INH PRN (20:30)
[2024-03-30] MEDS ORDERED: HYDROmorphone HCl/Pf 1MG SYR IV PRN ×2 (20:30)
[2024-03-30] MEDS ORDERED: Meperidine HCl 50 MG/ML 1ML Injection IV PRN (20:30)
[2024-03-30] MEDS ORDERED: FentaNYL Citrate 50 MCG/ML 2 ML Injection IV PRN (20:30)
[2024-03-30] MEDS ORDERED: OxyCODONE HCL 5 MG TAB PO PRN (20:45)
[2024-03-30] MEDS ORDERED: Ketorolac Tromethamine 15mg Vial IV PRN (20:50)
--- NOTE | 2024-03-30 21:50 | NUR ---
POST-OP PT ARRIVED TO UNIT FROM PACU AT 2130 TODAY S/P LAP ARINA. PT A/OX4 WITH VSS. 3 ABD LAP INCISION CLOSED WITH TISSUE ADHESIVE, NO DRAINAGE NOTED. MIKE TO RLQ WITH SMALL AMOUNT OF SS NOTED, BULB COMPRESSED, CHG DRESSING CDI. PT DENIES PAIN, CP, SOB, OR N/T. ABLE TO WIGGLE FINGERS/TOES AND FOLLOWS INSTRUCTIONS/MAKES NEEDS KNOWN. IV TO RIGHT HAND AND LEFT FA SL. SCD'S TO BLE IN PLACE AND ON. TELE ELECTRODES AND BATTERIES REPLACED, NSR AT 78 BPM -PER MUSIC PROFESSIONALS. NEW GOWN CHANGE PER PT REQUEST. PT IS TOLERATING SMALL AMOUNTS OF PO INTAKE, WATER AND CRACKERS AT THIS TIME. IS VOIDING IN URINAL IND. PERSONAL BELONGINGS PROVIDED TO PT FROM PACU. DENIES NEEDS. ORIENTATION TO ROOM PROVIDED, PT VERBALIZED UNDERSTANDING. HAS CALL LIGHT IN REACH.
[2024-03-31] VITALS (7 sets, daily range): BP systolic 95–130; BP diastolic 41–67
--- NOTE | 2024-03-31 04:38 | NUR ---
SHIFT SUMMARY POD 1 S/P LAP ARINA. A/OX4 WITH VSS. ABD INCISIONS X 3 CLOSED WITH ADHESIVE/ OPEN TO AIR WITHOUT ANY DRAINAGE NOTED. MIKE TO RLQ DRAINING SS, BULB COMPRESSED WITH CHG DRESSING CDI. TOLERATING SMALL AMOUNT OF PO INTAKE. IVF INFUSING PER ORDER. IS VOIDING, USING URINAL. PAIN MANAGED PER EMAR, MEDICATED X 1. WILL GIVE REPORT TO ONCOMING RN.
[2024-03-31 06:26] LABS: Hematocrit 31.6 % (37.0-53.0); Hemoglobin 10.3 g/dL (13.5-17.5); Mean Corpuscular HGB 30.5 pg (26.0-34.0); Mean Corpuscular HGB Conc 32.6 g/dL (31.5-36.5); Mean Corpuscular Volume 94 fL (80-100); Mean Platelet Volume 10.3 fL (9.1-12.4); Platelet Count 255 K/mm3 (150-400); RDW Coefficient Variation 12.9 % (11.7-14.2); RDW Standard Deviation 44.3 fL (35.1-46.3); Red Blood Cell Count 3.38 M/mm3 (4.30-5.90); White Blood Cell Count 17.19 K/mm3 (4.00-11.30)
[2024-03-31 07:10] LABS: Bun/Creatinine Ratio 21.3 (12.0-20.0); Calcium, Blood 8.2 mg/dL (8.5-10.1); Creatinine, Blood 1.08 mg/dL (0.60-1.20); Potassium, Blood 3.6 mmol/L (3.5-5.5)
[2024-03-31] MEDS ORDERED: Insulin Human Lispro 100 Units/ML 3ML Syringe SC SCH (07:30)
[2024-03-31] MEDS ORDERED: Dorzolamide/Timolol Opth Soln 10 ML RIGHTEYE SCH (09:00)
[2024-03-31] MEDS ORDERED: Metoprolol Tartrate 50 MG Tab PO SCH (09:00)
[2024-03-31] MEDS ORDERED: Lisinopril 20 MG Tab PO SCH (09:00)
[2024-03-31] MEDS ORDERED: Famotidine 20 MG Tab PO SCH (09:00)
[2024-03-31] MEDS ORDERED: OxyCODONE HCL 5 MG TAB PO PRN (13:37)
--- NOTE | 2024-03-31 20:00 | NUR ---
SHIFT SUMMARY PT IS POD1 FOR LAP ARINA. ALERT, RESPONSIVE, 1 ASST W/ FWW TO AMBULATE. PT HAS AMBULATED HALLS. TREATED FOR PAIN PER EMAR W/ GOOD RESULTS. PT IS VOIDING, PASSING SMALL AMNT OF GAS. EATING SMALL AMNTS OF REG DIET W/ INCREASED PAIN, DR. CARLIN AND DR. FULTON AWARE. PT IS NOT ON ABX, CLARIFIED W/ DR. CARLIN AND DR. FULTON W/ NO FURTHER ORDERS RECIEVED. CALLED [email or web address] AT 1620 TO VERIFY RATE AND RHYTHM, THIS RN WAS THEN INFORMED THAT PT HAD BEEN IN A FLUTTER SINCE 1358. THIS RN HAD NOT PREVIOUSLY BEEN INFORMED OF THIS. UPON ASSESSMENT OF PT, HE WAS COMPLAINING OF CHEST PRESSURE. DR. FULTON NOTIFIED, ORDER FOR STAT TROPONIN AND EKG RECIEVED. DR. FULTON INFORMED THAT AM METOPROLOL AND LISINOPRIL WERE HELD DUE TO HYPOTENSION, AND THAT BP HAD BEEN STEADILY DECREASING. ORDER TO GIVE 2100 METOPROLOL EARLY RECIEVED AND FOR LISINOPRIL TO BE RESUMED AT NORMAL TIME IN THE AM. BP RECHECKED AND WAS STABLE, INFORMED DR. FULTON AT 1826 THAT PT WAS NOW IN AFIB AT 76, NO FURTHER ORDERS RECIEVED. PT DOES HAVE HX OF AFIB. PT DENIES CHEST PAIN/PRESSURE AT THIS TIME. PT STABLE AT THIS TIME, REPORT TO ONCOMING RN. CALL LIGHT IN REACH.
[2024-04-01 03:16] VITALS: BP 112/53
--- NOTE | 2024-04-01 06:38 | NUR ---
SHIFT SUMMARY NO ACUTE CHANGES THIS SHIFT. MIKE PRODUCING SS FLUID, ABD COVERING CHG DRESSING CDI. PAIN MANAGED PER EMAR. INCISIONS CDI. PER IT CONSULTANT, HR CHANGED FROM AFIB TO NSR. NO COVERAGE FOR HS CBG. IVF INFUSING PER ORDERS. VOIDING IND IN URINAL AT BEDSIDE. GREGG PO INTAKE, ENCOURAGE PO FLUID AND AMBULATION GREGG. WILL GIVE REPORT TO ONCOMING RN.
[2024-04-01 07:26] VITALS: BP 111/56
[2024-04-01 07:41] LABS: Hematocrit 35.5 % (37.0-53.0); Hemoglobin 11.6 g/dL (13.5-17.5); Mean Corpuscular HGB 30.1 pg (26.0-34.0); Mean Corpuscular HGB Conc 32.7 g/dL (31.5-36.5); Mean Corpuscular Volume 92 fL (80-100); Mean Platelet Volume 10.1 fL (9.1-12.4); Platelet Count 206 K/mm3 (150-400); RDW Coefficient Variation 12.8 % (11.7-14.2); Red Blood Cell Count 3.85 M/mm3 (4.30-5.90); White Blood Cell Count 12.41 K/mm3 (4.00-11.30)
[2024-04-01 07:58] LABS: Albumin, Blood 2.4 g/dL (3.4-5.0); Albumin/Globulin Ratio 0.6 (0.8-1.8); Bilirubin, Total 0.7 mg/dL (0.1-1.0); Bun/Creatinine Ratio 24.1 (12.0-20.0); Calcium, Blood 8.1 mg/dL (8.5-10.1); Creatinine, Blood 1.08 mg/dL (0.60-1.20); Globulin, Blood 4.3 g/dL (2.2-4.0); Potassium, Blood 3.9 mmol/L (3.5-5.5); Total Protein, Blood 6.7 g/dL (6.4-8.2)
[2024-04-01 09:29] VITALS: BP 124/58
[2024-04-01 11:02] VITALS: BP 141/73
[2024-04-01] MEDS ORDERED: Mag Hydrox/Al Hydrox/Simeth 18 ML,Lidocaine 2% Viscous Soln 9 ML,Atropine/Scopalam/Hyos... PO ONE (11:10)
[2024-04-01 14:25] VITALS: BP 121/61
--- NOTE | 2024-04-01 14:43 | NUR ---
Pt. is awake in bed and welcomes my visit. Pt. is known to this legal services professional from the community. Facilitated an update. Pt. verbalized that he had his gall bladder removed, and that the doctor said "it was very bad," Pt. is a man of caprice so dislpays evidence of graititude for the care he has received and for God's protection in his life. Prayed with Pt. Pt. verbalized graitude for the spiritul care visit.
--- NOTE | 2024-04-01 17:08 | NUR ---
PATIENT IS ALERT AND ORIENTED AND COOPERATIVE WITH CARE. SBA TO THE BATHROOM. AMBULATED IN THE SCHAFFER TODAY. MIKE DRAIN TO RLQ, DRAINING SS FLUID. PASSING GAS, NO BM. USES THE URINAL INDEPENDENTLY. PATIENT WANTED TO STAY ANOTHER NIGHT FOR PAIN MANAGEMENT. WILL CONTINUE TO MONITOR
[2024-04-01 19:24] VITALS: BP 130/57
--- NOTE | 2024-04-01 22:41 | NUR ---
PROVIDER UPDATE PT CONTINUES TO REFUSE NEW IV START. RISK VERSES BENEFIT EDUCATION PROVIDED, PT VERBALIZED UNDERSTANDING. HOSPITALIST NOTIFIED. ORDER OBTAINED FOR NO IV AND DC TELE. WILL IMPLEMENT DIRECTED. CHARGE NOTIFIED.
--- NOTE | 2024-04-02 04:46 | NUR ---
SHIFT SUMMARY NO ACUTE CHANGES T/O SHIFT. ABD INCISIONS CDI. MIKE DRAINING SS FLUID, DRESSING INTACT. MEDICATED PER EMAR FOR PAIN. PT ENCOURAGED TO AMBULATE IN HALLWAY/ROOM PRN WITH GB, SBA, FWW. PT DECLINED. USES URINAL AT BEDSIDE IND. TELE AND IV DC'D PER ORDERS/PT PREFERENCE. GREGG PO INTAKE. ENCOURAGED FLUID CONSUMPTION FREQUENTLY. ABD CONTINUES TO BE TENDER TO TOUCH AND DISTENTED, NOT CHANGES NOTED. REPORTS PASSING FLATUS. WILL GIVE REPORT TO ONCOMING RN.
[2024-04-02 05:24] VITALS: BP 132/63
[2024-04-02 07:22] VITALS: BP 137/57
[2024-04-02] MEDS ORDERED: OXAYDO5 M1 PO (08:09)
--- NOTE | 2024-04-02 14:47 | NUR ---
DISCHARGE PT DISCHARGED HOME FROM UNIT AT APROX 1447. PT GIVEN WRITTEN AND VERBAL DC INSTRUCTIONS AND VERBALIZED UNDERSTANDING. PT DEMONSTRATED MIKE DRAIN MGMT. WRITTEN RX GIVEN TO PT. WC TO PRIVATE VEHICLE
--- NOTE | 2024-04-02 15:28 | NUR ---
DISCHARGE SUMMARY POD2 LAP ARINA, A/OX4, VSS, TOLERATING PO, AMBULATING WELL, VOIDING INDEPENDENTLY, MIKE DRAIN IN PLACE AND INSTRUCTIONS WERE GIVEN ON USING THE DRAIN RECORD TO MONITOR OUTPUT AND ITS REMOVAL AT HIS FOLLOW UP APPOINTMENT.
== END 2024-04-02 14:54 | disposition home or self-care (01) | DRG 417 ==
LOC: ER 13:26 → MEDS 21:59 → ERHOLD 21:59 → MEDS 22:54 → SURS 03-30 17:39
PROVIDERS: Internal Medicine; Nurse Practitioner Acute Care; Student in an Organized Health Care Education/Training Program; Surgery; ADMIT Student in an Organized Health Care Education/Training Program
PROC: 8E0W4CZ Robotic Assisted Procedure of Trunk Region, Percutaneous Endoscopic Approach (ICD-10-PCS; 2024-03-30)
PROC: 0FT44ZZ Resection of Gallbladder, Percutaneous Endoscopic Approach (ICD-10-PCS; principal; 2024-03-30 17:00)
DX: K80.10 Calculus of gallbladder with chronic cholecystitis without obstruction (principal); K85.10 Biliary acute pancreatitis without necrosis or infection; R65.11 Systemic inflammatory response syndrome (SIRS) of non-infectious origin with acute organ dysfunction; N17.9 Acute kidney failure, unspecified; I48.92 Unspecified atrial flutter; F11.20 Opioid dependence, uncomplicated; K82.A1 Gangrene of gallbladder in cholecystitis; E11.9 Type 2 diabetes mellitus without complications; I48.0 Paroxysmal atrial fibrillation; I10 Essential (primary) hypertension; K21.9 Gastro-esophageal reflux disease without esophagitis; N40.0 Benign prostatic hyperplasia without lower urinary tract symptoms; G89.29 Other chronic pain; Z98.890 Other specified postprocedural states; Z88.0 Allergy status to penicillin; Z79.899 Other long term (current) drug therapy; Z79.811 Long term (current) use of aromatase inhibitors
CPT/HCPCS: 36415; 71046; 74181; 76705; 80048; 80053; 82947; 83690; 83735; 84484; 85025; 85027; 85610; 88304; 93005; 93010; 94760; 96374; 96375; 96376; 99285-25; A9270; J0690; J1100; J1171; J1885; J2270; J2405; J2704; J2765; J3010; J7120